=== PATIENT | female | born 1945 | race Caucasian/White ===

== ENCOUNTER 2019-06-01 13:15 | Outpatient (CLI) | payer MEDICARE, SELFPAY ==
--- NOTE | ~2019-06-01 | XR_ITS ---
EXAMINATION: XR foot LT min 3V DATE: 06/01/2019 13:42 INDICATION: Unspecified fall, pain of the lateral foot TECHNIQUE: Dorsoplantar, lateral, and 2 oblique views of the left foot were obtained. COMPARISON: None. FINDINGS: There is no fracture, dislocation, or subluxation. The bones, soft tissues, and joint space s are normal. IMPRESSION: 1. No acute osseous abnormality. Reviewed, dictated and finalized at location A. AR RUNNER
== END 2019-06-01 13:16 | disposition home or self-care (01) ==
PROVIDERS: PCP Internal Medicine; Visit Provider Internal Medicine
DX: M79.672 Pain in left foot (principal)
CPT/HCPCS: 73630

== ENCOUNTER 2019-08-18 13:19 | Inpatient (IN) | payer MEDICARE, SELFPAY ==
[2019-08-18] VITALS (8 sets, daily range): BP systolic 108–154; BP diastolic 55–119; PULSE 57–79; RESP 3–16; TEMP 36.1–36.4; O2SAT 96–100; BMI 24.9
--- NOTE | ~2019-08-18 | CT_ITS ---
EXAMINATION: CT brain wo con DATE: 08/18/2019 13:29 INDICATION: Facial weakness. TECHNIQUE: Computed tomography (CT) of the head was performed without intravenous contrast. The mA wa s adjusted according to patient size. Iterative reconstruction technique was employed. The dose-lengt h product was 529.67 mGy-cm. 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 There is a punctate calcification at the margin of the mass. There is a small old infarct in left cerebellum. There is no acute ischemic infarct or intracranial hemorrhage. The ve ntricles are normal in size. There is mild mucosal thickening in the paranasal sinuses. The mastoid a ir cells are normal. There are likely changes of ocular lens replacement surgeries. IMPRESSION: 1. 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 The differential diagnosis includes oliveira matter heterotopia and neoplasm such as subependymoma. 2. Small old infarct in left cerebellum. 3. I discussed this case with Dr. Parry on 08/18/19 at 13:35. Reviewed, dictated and finalized at location A. IMPRESSION: 1. 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 The different ial diagnosis includes oliveira matter heterotopia and neoplasm such as subependymo ma. 2. Small old infarct in left cerebellum. 3. I discussed this case with Dr. Parry on 08/18/19 at 13:35.
--- NOTE | ~2019-08-18 | US_ITS ---
EXAMINATION: US carotid duplex BI DATE: 08/19/2019 15:33 INDICATION: CVA. TECHNIQUE: Grayscale, color Doppler, and pulsed Doppler images of the cervical carotid arteries were obtained. The degree of vessel stenosis is placed in one of the following categories: normal, <50%, 5 0-69%, >=70% but less than near-occlusion, near-occlusion, or total occlusion. Note that percent sten osis relative to normal distal artery lumen diameter is indirectly measured from velocity measurement s as described by Weston, et al. Radiology 2003; 229:340-346. Notes: Normal: Peak systolic velocity <125 centimeters/sec and no plaque <50%. Peak systolic velocity <125 ( EDV <40; ICA/CCA PSV ratio <2.0; used these factors only a tandem lesions or low cardiac output or co ntralateral disease) 50-69 %: PSV 125-230 (EDV 40-100; ratio 2-4) >= 70% but less than near occlusion: PSV greater than 230 (EDV > 100; ratio> 4.0) Near Occlusion: PSV that is variable; markedly narrowed lumen Occlusion: Absent flow on color/spectral Doppler and no lumen on oliveira scale. COMPARISON: None. FINDINGS: RIGHT: The right common carotid artery (CCA) peak systolic velocity (PSV) is 102 cm/s. The right internal ca rotid artery (ICA) PSV is 122 cm/s. The right ICA end-diastolic velocity (EDV) is 23 cm/s. The right ICA/CCA PSV ratio is 1.2. The external carotid artery (ECA) PSV is 160 cm/s. There is antegrade flow in the right vertebral artery. LEFT: The left CCA PSV is 116 cm/s. The left ICA PSV is 146 cm/s. The left ICA EDV is 14 cm/s. The left ICA /CCA PSV ratio is 1.3. The ECA PSV is 128 cm/s. There is antegrade flow in the left vertebral artery . IMPRESSION: 1. Less than 50% stenosis in the right internal carotid artery by sonographic criteria. 2. 50-69% stenosis in the left internal carotid artery by sonographic criteria. Reviewed, dictated and finalized at location A. IMPRESSION: 1. Less than 50% stenosis in the right internal carotid artery by sonographic c riteria. 2. 50-69% stenosis in the left internal carotid artery by sonographic criteria.
--- NOTE | ~2019-08-18 | MR_ITS ---
EXAMINATION: MR brain/brain stem wo/w con DATE: 08/19/2019 15:16 INDICATION: Left facial numbness TECHNIQUE: Magnetic resonance imaging (MRI) of the brain and brainstem was performed prior to than wing the administration of 14 cc of MultiHance intravenous contrast. Sequences included sagittal a nd axial T1-weighted SE, axial diffusion-weighted FS EPI ASSET, axial T2*-weighted GRE, axial T2-weig hted FLAIR Propeller, and axial T2-weighted Propeller. Postcontrast axial and coronal T1-weighted SE was obtained. Apparent diffusion coefficient (ADC) maps were created. COMPARISON: 09/21/2018 FINDINGS: There are no areas of restricted diffusion to suggest acute infarction. An old infarct is a gain noted in the left cerebellum. There is no acute hemorrhage seen on the T2*, a hemosiderin sensit nirmal sequence. The ventricles are normal in size. There is a stable 11 mm ependymal mass in the left l ateral ventricle which is again seen to follow oliveira matter signal intensity on all sequences. There a re no extra-axial collections. Flow voids are seen in the cerebral arteries on the T2-weighted seque nces consistent with their expected patency. Visualized orbits and soft tissues are unremarkable. Th ere are no areas of abnormal enhancement on the post contrast images. IMPRESSION: 1. No acute intracranial process. 2. 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 3. 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 Reviewed, dictated and finalized at location A. IMPRESSION: 1. No acute intracranial process. 2. 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 3. 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
--- NOTE | ~2019-08-18 | XR_ITS ---
EXAMINATION: XR chest 1V INDICATION: Chest pressure TECHNIQUE: AP view of the chest is obtained. COMPARISON: 08/24/2018 FINDINGS: The lungs are free of acute opacities. There is no pleural effusion or pneumothorax. A prom inent epicardial fat pad is noted at the left costophrenic angle. Thoracolumbar levocurvature is note d. The cardiomediastinal silhouette is stable. A surgical clip is noted in the left upper quadrant. IMPRESSION: 1. No acute cardiopulmonary abnormality. Reviewed, dictated and finalized at location A.
--- NOTE | 2019-08-18 13:21 | ECG_ITS ---
Measurements Intervals [place] Rate: 60 P: 124 VT: 149 QRS: 181 QRSD: 97 T: 149 QT: 404 QTc: 404 Interpretive Statements SINUS RHYTHM LIMB LEAD REVERSAL BASELINE ARTIFACT- I, II, III, AVL, AVF, V3 ATYPICAL ECG Electronically Signed On 08-18-2019 13:56:54 CDT by Danilo Jackson D.O.
[2019-08-18 14:15] LABS: Glucose Point of Care 132 (65-105)
[2019-08-18 14:26] LABS: Basophils Absolute Auto 0.1 K/mm3 (0.0-0.1); Basophils Percent Auto 0.7 % (0.2-1.2); Eosinophils Absolute Auto 0.3 K/mm3 (0-0.3); Eosinophils Percent Auto 3.8 % (0-4.4); Hematocrit 46.6 % (37.0-47.0); Immature Granulocyte Absolute 0.02 K/mm3 (0.00-0.031); Immature Granulocyte Percent A 0.3 % (0-0.5); Lymphocytes Absolute Auto 2.33 K/mm3 (0.9-3.2); Lymphocytes Percent Auto 34.4 % (18.3-44.2); Mean Corpuscular HGB Conc 32.2 g/dl (32-36); Mean Corpuscular Hemoglobin 28.6 pg (26-34); Mean Corpuscular Volume 88.9 fl (80-100); Mean Platelet Volume 10.4 fl (7.4-10.4); Monocytes Absolute Auto 0.7 K/mm3 (0.1-0.6); Neutrophils Absolute Auto 3.4 K/mm3 (1.3-6.7); Neutrophils Percent Auto 50.8 % (45.5-73.1); Platelet Count Result 292 k/mm3 (150-375); Red Blood Count 5.24 M/mm3 (4.2-5.4); Red Cell Distribution Width 13.3 % (11.5-14.5); White Blood Count 6.8 K/mm3 (4.5-10.0)
[2019-08-18 14:35] LABS: INR 0.9; Prothrombin Time 11.9 Seconds (11.1-14.7)
[2019-08-18 14:36] LABS: Partial Thromboplastin Time 26.3 SECONDS (22.3-36.8)
[2019-08-18 14:40] LABS: Blood Urea Nitrogen 13 mg/dL (7-17); Calcium 9.7 mg/dL (8.4-10.2); Carbon Dioxide 31 mmol/L (22-30); Chloride 100 mmol/L (98-107); Estimated CRCL calculation 64 ml/min; Estimated Glomerular Filt Rate > 60; Glucose 131 mg/dL (65-105); Potassium 4.1 mmol/L (3.4-5.0); Sodium 139 mmol/L (137-145)
[2019-08-18 14:52] LABS: Troponin I < 0.012 ng/mL (0.000-0.034)
--- NOTE | 2019-08-18 15:41 | ED.NEUROSD ---
HPI - Neuro Symptoms/Deficit General Chief Complaint: Suspected CVA Stated Complaint: doctor thinks i am having a stroke Time Seen by Provider: 08/18/19 14:03 Source: patient and family Mode of arrival: ambulatory Limitations: no limitations History of Present Illness HPI Narrative: 74-year-old with a history of CAD, hyperlipidemia, diabetes here with complaints of left-sided facial numbness since this morning patient states that she was unable to sleep all night long slept till about 1030 this morning woke up with left-sided facial numbness she states that she was unable to get words out because of the numbness of her face. She denies any headache or motor weakness. No previous history of strokes in the past. Severity: mild Quality: numb and tingling Relieving factors: none Associated symptoms: denies other symptoms Related Data Home Medications Medication Instructions Recorded Confirmed aspirin [Aspir-Low] 81 mg PO DAILY 03/22/19 03/22/19 calcium carbonate-vitamin D3 1 tablet PO DAILY 03/22/19 03/22/19 [Calcium 600 + D(3)] calcium polycarbophil [FiberCon] 1,250 mg PO DAILY 03/22/19 03/22/19 evolocumab [Repatha Pushtronex] 420 mg SUBCUT MONTHLY 03/22/19 03/22/19 [id number] acid-lutein [Centrum 1 tablet PO DAILY 03/22/19 03/22/19 Silver] sitagliptin [Januvia] 100 mg PO DAILY 03/22/19 03/29/19 isosorbide mononitrate 60 mg 60 mg PO DAILY 04/20/19 tablet,extended release 24 hr nitroglycerin 0.4 mg PO Q5M PRN MDD 3 tablets 08/18/19 Allergies Allergy/AdvReac Type Severity Reaction Status Date / Time iohexol Allergy Intermediate Hives/REDFA Verified 06/09/19 10:31 [From CONTRAST - CT, XRAY] CE Hhknhbn-Rrl-Wan Reductase Allergy Intermediate Joint Pain Verified 06/09/19 10:31 Inhibitor neomycin Allergy Mild Itching Verified 06/09/19 10:31 penicillin G Allergy Mild RASH Verified 06/09/19 10:31 adhesive tape Allergy Unknown REDNESS Verified 06/09/19 10:31 aspirin Allergy Unknown Hives Verified 06/09/19 10:31 latex Allergy Unknown Other Verified 02/06/20 10:31 Penicillins Allergy Unknown Rash Verified 06/09/19 10:31 red dye Allergy Unknown Rash Verified 06/09/19 10:31 vancomycin Allergy Unknown CHEST Verified 06/09/19 10:31 PRESSURE, SOB,HEAD PRESSURE yellow dye Allergy Unknown Hallucinati Verified 06/09/19 10:31 ng bacitracin AdvReac Unknown Nausea and Verified 08/18/19 14:47 Vomiting polymyxin B AdvReac Unknown Nausea and Verified 08/18/19 14:47 Vomiting zolpidem AdvReac Unknown Nausea and Verified 08/18/19 14:47 Vomiting Review of Systems Review of Systems: All systems reviewed & are unremarkable except as noted in HPI and below Constitutional: Constitutional: Reports as per HPI Eyes: Eyes: Reports no additional eye complaints ENT: Reports system reviewed and no additional complaints, except as documented Cardiovascular: Cardiovascular: Reports no additional cardiovascular complaints Respiratory: Respiratory: Reports no additional respiratory complaints Genitourinary: Genitourinary: Reports no additional female genitourinary complaints Musculoskeletal: Musculoskeletal: Reports no additional musculoskeletal complaints Integumentary/Breasts: Skin/Breast: Reports system reviewed and no additional complaints, except as docu Neurologic: Reports system reviewed and no additional complaints, except as documented Psychiatric: Psychiatric: Reports no additional psychiatric complaints PMFSH Past Medical History Medical History Brain tumor Hyperlipidemia Hypertension IBS (irritable bowel syndrome) SHANE on CPAP Over weight PONV (postoperative nausea and vomiting) Social History Social History Smoking status: Never smoker Alcohol intake: never Exam Narrative: Exam Narrative: GENERAL: Well-appearing, well-nourished, and in no acute distress. HEAD: Normoc
--- NOTE | 2019-08-18 16:37 | ED.NEUROSD ---
HPI - Neuro Symptoms/Deficit General Source: patient and family Mode of arrival: ambulatory Limitations: no limitations History of Present Illness Severity: mild Quality: numb and tingling Relieving factors: none Related Data Home Medications Medication Instructions Recorded Confirmed aspirin [Aspir-Low] 81 mg PO DAILY 03/22/19 03/22/19 calcium carbonate-vitamin D3 1 tablet PO DAILY 03/22/19 03/22/19 [Calcium 600 + D(3)] calcium polycarbophil [FiberCon] 1,250 mg PO DAILY 03/22/19 03/22/19 evolocumab [Repatha Pushtronex] 420 mg SUBCUT MONTHLY 03/22/19 03/22/19 [id number] acid-lutein [Centrum 1 tablet PO DAILY 03/22/19 03/22/19 Silver] sitagliptin [Januvia] 100 mg PO DAILY 03/22/19 03/29/19 isosorbide mononitrate 60 mg 60 mg PO DAILY 04/20/19 tablet,extended release 24 hr nitroglycerin 0.4 mg PO Q5M PRN MDD 3 tablets 08/18/19 Allergies Allergy/AdvReac Type Severity Reaction Status Date / Time iohexol Allergy Intermediate Hives/REDFA Verified 06/09/19 10:31 [From CONTRAST - CT, XRAY] CE Kmopboe-Xiy-Xtf Reductase Allergy Intermediate Joint Pain Verified 06/09/19 10:31 Inhibitor neomycin Allergy Mild Itching Verified 06/09/19 10:31 penicillin G Allergy Mild RASH Verified 06/09/19 10:31 adhesive tape Allergy Unknown REDNESS Verified 06/09/19 10:31 aspirin Allergy Unknown Hives Verified 06/09/19 10:31 latex Allergy Unknown Other Verified 06/09/19 10:31 Penicillins Allergy Unknown Rash Verified 06/09/19 10:31 red dye Allergy Unknown Rash Verified 06/09/19 10:31 vancomycin Allergy Unknown CHEST Verified 06/09/19 10:31 PRESSURE, SOB,HEAD PRESSURE yellow dye Allergy Unknown Hallucinati Verified 06/09/19 10:31 ng bacitracin AdvReac Unknown Nausea and Verified 08/18/19 14:47 Vomiting polymyxin B AdvReac Unknown Nausea and Verified 08/18/19 14:47 Vomiting zolpidem AdvReac Unknown Nausea and Verified 08/18/19 14:47 Vomiting PMFSH Past Medical History Medical History Brain tumor Hyperlipidemia Hypertension IBS (irritable bowel syndrome) SHANE on CPAP Over weight PONV (postoperative nausea and vomiting) Social History Social History Smoking status: Never smoker Alcohol intake: never Course Vital Signs Vital signs: Vital Signs Temperature 97.6 F 08/18/19 13:39 Pulse Rate 79 08/18/19 13:39 Respiratory Rate 14 08/18/19 13:39 Blood Pressure 108/88 08/18/19 13:39 Temperature 97.6 F 08/18/19 13:39 Pulse Rate 57 L 08/18/19 15:01 Respiratory Rate 3 L 08/18/19 15:01 Blood Pressure 130/86 08/18/19 15:01 Pulse Oximetry 97 08/18/19 15:01 MDM - Neuro Symptoms/Deficit Lab Data Result diagrams: 08/18/19 13:52 08/18/19 13:52 Labs: Lab Results 08/18/19 08/18/19 08/18/19 Range/Units 13:50 13:52 13:52 WBC 6.8 (4.5-10.0) K/mm3 RBC 5.24 (4.2-5.4) M/mm3 Hgb 15.0 (12.0-15.0) g/dL Hct 46.6 (37.0-47.0) % MCV 88.9 (80-100) fl MCH 28.6 (26-34) pg MCHC 32.2 (32-36) g/dl RDW 13.3 (11.5-14.5) % Plt Count 292 (150-375) k/mm3 MPV 10.4 (7.4-10.4) fl Immature Gran % (Auto) 0.3 (0-0.5) % Neut % (Auto) 50.8 (45.5-73.1) % Lymph % (Auto) 34.4 (18.3-44.2) % Ramsey % (Auto) 10.0 H (2.6-8.5) % Eos % (Auto) 3.8 (0-4.4) % Baso % (Auto) 0.7 (0.2-1.2) % Lymph # (Auto) 2.33 (0.9-3.2) K/mm3 Ramsey # (Auto) 0.7 H (0.1-0.6) K/mm3 Eos # (Auto) 0.3 (0-0.3) K/mm3 Baso # (Auto) 0.1 (0.0-0.1) K/mm3 Abs Immat Gran (auto) 0.02 (0.00-0.031) K/mm3 Absolute Neuts (auto) 3.4 (1.3-6.7) K/mm3 Absolute Nucleated RBC 0.0 (0.0-0.012) K/mm3 Nucleated RBC % 0.0 (0.0-0.2) % PT 11.9 (11.1-14.7) Seconds INR 0.9 APTT 26.3 (22.3-36.8) SECONDS Sodium (137-145) mmol/L Potassium (3.4-5.0) mmol/L Chloride (98
--- NOTE | 2019-08-18 17:15 | ADMGEN ---
This patient, Klaudia Cedeno, was admitted to 2 Medical Room 251-. Patient/family oriented to hospital policies and general routines including ID bracelet, bed and alarms, visiting hours, pain management, procedures, bathroom and other care routines, personal items, smoking policy, room service/diet, and visiting hours. Valuables list has been completed. Information on how to activate the Rapid Response Team has been discussed. Patient/Family are encouraged to report perceived risks to care and to ask questions if they do not understand what they are told or what they should do.
[2019-08-18 18:19] LABS: Glucose Point of Care 181 (65-105)
[2019-08-18 21:13] LABS: Glucose Point of Care 134 (65-105)
--- NOTE | 2019-08-18 22:00 | PM.IMHP ---
H&P: HPI History of Present Illness Chief complaint: Left facial numbness. <Kathy Palafox PA-C - Last Filed: 08/19/19 00:19> Narrative: Klaudia Cedeno is a 74-year-old female with coronary artery disease, hypertension, hyperlipidemia, type 2 diabetes mellitus, hypothyroidism, and obstructive sleep apnea who presented to the emergency department earlier today for evaluation of left-sided facial numbness. She did not sleep well last evening, which is not unusual for her, and she estimates that she fell asleep at about 04:00. She woke up at approximately 10:30 and at that time noted that the left side of her face, more so in the hinduism region, seemed ?sunken in? as well as sensation changes throughout the left side of her face. ED physician documents that the patient said she was having difficulties getting words out, but she denies this to me. She continues to have minor decrease in sensation, but it seems to be improving. She has no other symptoms and specifically denies auditory and visual changes, vertigo, focal weakness, palpitations, dysarthria, and dysphagia. Of note, the patient lists an aspirin allergy, but states she went through desensitization and is able to tolerate a baby aspirin daily. <Kathy Palafox PA-C - Last Filed: 08/19/19 00:19> Review of Systems Review of Systems: Narrative: Twelve systems were reviewed with pertinent positives and negatives as per HPI. No fever, chills, or sweats. No recent cold or flu symptoms. Her diabetes is well controlled, with hemoglobin A1c of 6.9% April 2019. Her glucose today was around 180, which is high for her. She denies blurry vision, polydipsia, and polyuria. No chest pain or palpitations. No shortness of breath. No nausea, vomiting, or diarrhea. No dysuria. Reports memory loss that has developed over the last couple of years. Except as documented, all other systems were reviewed and are negative. <Kathy Palafox PA-C - Last Filed: 08/19/19 00:19> COUNTS INCLUDE 234 BEDS AT THE [facility] Family History Family History: Family History Mother Family history of diabetes mellitus in first degree relative Family history of coronary artery disease Family history of malignant neoplasm of thyroid Family history of kidney disease Family history of heart disease in male family member before age 55 Other Diabetes mellitus Family history of arthritis Hypertension <Kathy Palafox PA-C - Last Filed: 08/19/19 00:19> Social History Social History: Social History Social History: Surrogate decision maker: Santy Cedeno, spouse. Code status: Full code. Smoking status: Never smoker Second hand tobacco smoke exposure: Yes (SPOUSE IN THE PAST BUT HE DIDN'T SMOKE IN HOUSE) Alcohol intake: never Substance use: never Additional living arrangements comments: Lives with spouse, Santy, in [place]. 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 Spiritual care concerns: No ([facility]) Agree to blood products: Yes <Kathy Palafox PA-C - Last Filed: 08/19/19 00:19> Meds Home Medications and Allergies Home medications: Home Medications Medication Instructions Recorded Confirmed Type Centrum Silver 1 tablet PO DAILY 03/22/19 08/18/19 History Repatha Pushtronex 420 mg SUBCUT MONTHLY 03/22/19 08/18/19 History calcium carbonate-vitamin D3 1 tablet PO DAILY 03/22/19 08/18/19 History [Calcium 600 + D(3)] calcium polycarbophil [FiberCon] 1,250 mg PO DAILY 03/22/19 08/18/19 History levothyroxine 88 mcg tablet 88 mcg PO DAILY #90 tablet 04/29/19 08/18/19 Rx losartan 100 1 tablet PO DAILY #90 tablet 05/09/19 08/18/19 Rx mg-hydrochlorothiazide 12.5 mg tablet clopidogrel 75 mg tablet 75 mg PO DAILY #90 tablet 05/17/19 08/18/19 Rx Januvia 50 mg PO DAILY 08/18/19 08/18/19
[2019-08-19] VITALS (9 sets, daily range): BP systolic 118–143; BP diastolic 50–55; PULSE 60–94; RESP 16; TEMP 36.2–36.3; O2SAT 95–96
--- NOTE | 2019-08-19 00:17 | ECHO_ITS ---
Patient Info Name: Klaudia Cedeno Age: 74 years : 1945 Gender: Female Ht: 66 in Wt: 154 lbs BSA: 1.81 m2 HR: 86 bpm BP: 118 / 50 mmHg Heart Rhythm: Sinus Rhythm Technical Quality: Good Exam Date: 08/19/2019 10:36 AM Exam Location: [facility] Patient Status: Inpatient Admit Date: 08/18/2019 Staff Ordering Physician: Kathy Palafox PA-C Dean Of Girls: Aman Aguilera RDCS Attending Provider: Alize Youssef PA-C Referring Physician: Javy GUIDRY; Exam Type: CA echo doppler color flow Study Info Indications 435.9 - TIA Complete two-dimensional, color flow and Doppler transthoracic echocardiogram is performed. History/Risk Factors TIA; CAD w/ stent, HTN, DM2, brain tumor. Summary 1. Left ventricular chamber dimension is normal. 2. Left ventricular systolic function is normal, estimated at 65-70%. 3. There is mild concentric increased left ventricular wall thickness. 4. There is mild aortic valve sclerosis. 5. The annulus is mildly calcified. 6. Normal sinus rhythm. Left Ventricle Left ventricular chamber dimension is normal. Left ventricular systolic function is normal, estimated at 65-70%. There is mild concentric increased left ventricular wall thickness. The left ventricular diastolic function is grade I diastolic dysfunction. Right Ventricle Right ventricular chamber dimension is normal. Left Atria Left atrial chamber dimension is normal. Right Atria Right atrial chamber dimension is normal. Aortic Valve The aortic valve is trileaflet. There is mild aortic valve sclerosis. There is no aortic valve stenosis. Pulmonic Valve The pulmonic valve is not well visualized. Mitral Valve The mitral valve has normal leaflets. The annulus is mildly calcified. Tricuspid Valve The tricuspid valve leaflets are normal. Pericardium/Pleural The pericardium appears normal. Aorta The aortic root size at the sinus of Valsalva is normal. Left Ventricular Outflow Tract Name Value Normal LVOT 2D LVOT Diameter 1.7 cm LVOT Doppler LVOT Peak Gradient 5 mmHg LVOT Mean Gradient 2 mmHg LVOT VTI 21 cm LVOT VTI/AV VTI Ratio 0.7 LVOT Stroke Volume 49 ml LVOT CO 4.3 l/min LVOT CI 2.4 l/min/m2 Mitral Valve Name Value Normal MV Doppler MV Decel Hamblen 386 cm/s2 MV PHT 45 ms MV Area (PHT) 4.9 cm2 4.0-5.0 MV Diastolic Function MV E Peak Velocity 60 cm/s MV A Peak Velocity 61 cm/s
[2019-08-19] MEDS: predniSONE 10 MG TABLET 50 MG PO ×3 (00:33→11:09)
[2019-08-19 04:51] LABS: Basophils Percent Auto 0.2 % (0.2-1.2); Eosinophils Percent Auto 0.4 % (0-4.4); Hematocrit 43.9 % (37.0-47.0); Hemoglobin 14.4 g/dL (12.0-15.0); Immature Granulocyte Absolute 0.04 K/mm3 (0.00-0.031); Immature Granulocyte Percent A 0.4 % (0-0.5); Lymphocytes Percent Auto 12.4 % (18.3-44.2); Mean Corpuscular HGB Conc 32.8 g/dl (32-36); Mean Corpuscular Hemoglobin 28.7 pg (26-34); Mean Corpuscular Volume 87.6 fl (80-100); Mean Platelet Volume 9.9 fl (7.4-10.4); Monocytes Absolute Auto 0.1 K/mm3 (0.1-0.6); Monocytes Percent Auto 1.4 % (2.6-8.5); Neutrophils Absolute Auto 8.3 K/mm3 (1.3-6.7); Neutrophils Percent Auto 85.2 % (45.5-73.1); Platelet Count Result 267 k/mm3 (150-375); Red Blood Count 5.01 M/mm3 (4.2-5.4); Red Cell Distribution Width 13.2 % (11.5-14.5); White Blood Count 9.7 K/mm3 (4.5-10.0)
[2019-08-19 05:09] LABS: Alanine Aminotransferase 20 U/L (4-35); Albumin Level 4.2 g/dL (3.5-5.1); Alkaline Phosphatase 54 U/L (38-126); Aspartate Amino Transferase 30 U/L (14-36); Bilirubin,Total 0.3 mg/dL (0.2-1.3); Blood Urea Nitrogen 16 mg/dL (7-17); Calcium 9.1 mg/dL (8.4-10.2); Carbon Dioxide 26 mmol/L (22-30); Chloride 103 mmol/L (98-107); Estimated CRCL calculation 56 ml/min; Estimated Glomerular Filt Rate > 60; Glucose 167 mg/dL (65-105); Potassium 3.8 mmol/L (3.4-5.0); Sodium 137 mmol/L (137-145)
[2019-08-19 06:09] LABS: Thyroid Stimulating Hormone Reflex 0.318 uIU/mL (0.465-4.68)
[2019-08-19] MEDS: LEVOTHYROXINE SODIUM 88 MCG TABLET PO (06:16)
[2019-08-19 06:55] LABS: Free T4 Free Thyroxine Reflex 1.61 ng/dL (0.78-2.19)
[2019-08-19 07:55] LABS: Glucose Point of Care 186 (65-105)
[2019-08-19] MEDS: ASPIRIN 81 MG ENTERIC TABLET PO (09:13)
[2019-08-19] MEDS: calcium polycarbophiL 625 MG TABLET 1250 MG PO (09:14)
[2019-08-19] MEDS: MULTIVITAMINS /C LUTEIN (CENTRUM SILVER) TABLET *BKC 1 TAB PO (09:15)
[2019-08-19] MEDS: CLOPIDOGREL BISULFATE 75 MG TABLET PO (09:16)
[2019-08-19 10:26] LABS: Total Triiodothyronine (T3) 1.33 NG/ML (0.97-1.69)
[2019-08-19 11:32] LABS: Glucose Point of Care 213 (65-105)
[2019-08-19] MEDS: INSULIN ASPART (*BKC) 100 UNITS/ML SUB-Q (11:33)
--- NOTE | 2019-08-19 11:55 | P.PNIM_ITS ---
Progress Note: A&P Assessment and Plan (1) Left facial numbness: Code(s): R20.0 - Anesthesia of skin <Alize Harpernahomy MAKAYLA-C - Last Filed: 08/19/19 12:18> Status: Acute <Alize Youssef PA-C - Last Filed: 08/19/19 12:18> Assessment and Plan: Head CT on 08/18/19 with no acute findings. Left facial sensations have resolved. * Brain MRI pending. She is being premedicated due to contrast allergy. She has had several MRIs previously with no adverse outcomes. * Carotid Doppler ultrasounds and echocardiogram completed and radiology report pending. * Perform neurologic checks q.4 hours. * Continue aspirin and Plavix. * Patient notes an intolerance to statins. <Alize Harpernahomy MAKAYLA-C - Last Filed: 08/19/19 12:18> (2) Hypertension: Code(s): I10 - Essential (primary) hypertension <Alize WhittingtonRicky Meredithnahomy MAKAYLA-C - Last Filed: 08/19/19 12:18> Status: Acute <Alize Youssef PA-C - Last Filed: 08/19/19 12:18> Assessment and Plan: Blood pressures evaluated today and stable at 118/50. * Hold losartan and HCTZ this morning given lower reading. Will allow mild, permissive hypertension over the next 24 to 48 hours. * Continue to monitor. <Alize WhittingtonRicky Meredithnahomy MAKAYLA-C - Last Filed: 08/19/19 12:18> (3) Hyperlipidemia: Code(s): E78.5 - Hyperlipidemia, unspecified <Alize Harpernahomy PA-C - Last Filed: 08/19/19 12:18> Status: Acute <Alize Harpernahomy PA-C - Last Filed: 08/19/19 12:18> Assessment and Plan: Stable. * Patient reports an intolerance to statins. * On monthly Repatha injections. <Alize WhittingtonRicky Meredithnahomy MAKAYLA-C - Last Filed: 08/19/19 12:18> (4) Type 2 diabetes mellitus without complication: Code(s): E11.9 - Type 2 diabetes mellitus without complications <Alize WhittingtonRicky Youssef PA-C - Last Filed: 08/19/19 12:18> Status: Acute <Alize Youssef PA-C - Last Filed: 08/19/19 12:18> Assessment and Plan: Hemoglobin A1c was 6.9% in April 2019. Blood sugar evaluated today and stable at 167. * Continue sitagliptin. * Initiate sliding scale insulin, Accu-Cheks, and hypoglycemic protocol. 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 Differential diagnosis includes oliveira matter heterotopia and neoplasm such as subependymoma. She has been evaluated for this by neurosurgeon at [facility], most recently in February 2019 and was informed no further follow up would be required for 2 years. <Alize Youssef PA-C - Last Filed: 08/19/19 12:18> Subjective Date/time seen: 08/19/19 11:55 <Alize Youssef PA-C - Last Filed: 08/19/19 12:18> Interval history: Date/time of service: 08/19/19 at 1130 MsRicky Cedeno is seen today and reports she is feeling well. She describes an indentation over the left temporal region. She noticed this yesterday and then began to notice a sensation over the left side of the face down to the jaw which she described as being rubbed by a cotton ball. She continues to noticed the sunken area but reports the strange sensation on the left side has resolved. She reports that when she is lying down she does not feel any symptoms at all. She
--- NOTE | 2019-08-19 11:55 | PM.IMPN ---
Progress Note: A&P Assessment and Plan (1) Left facial numbness: Code(s): R20.0 - Anesthesia of skin <Alize WhittingtonMAKAYLA Moreno-C - Last Filed: 08/19/19 12:18> Status: Acute <Alize Harpernahomy PA-C - Last Filed: 08/19/19 12:18> Assessment and Plan: Head CT on 08/18/19 with no acute findings. Left facial sensations have resolved. Brain MRI pending. She is being premedicated due to contrast allergy. She has had several MRIs previously with no adverse outcomes. Carotid Doppler ultrasounds and echocardiogram completed and radiology report pending. Perform neurologic checks q.4 hours. Continue aspirin and Plavix. Patient notes an intolerance to statins. <Alize WhittingtonRicky Youssef PA-C - Last Filed: 08/19/19 12:18> (2) Hypertension: Code(s): I10 - Essential (primary) hypertension <Alzie Youssef PA-C - Last Filed: 08/19/19 12:18> Status: Acute <Alize WhittingtonRicky Meredithnahomy PA-C - Last Filed: 08/19/19 12:18> Assessment and Plan: Blood pressures evaluated today and stable at 118/50. Hold losartan and HCTZ this morning given lower reading. Will allow mild, permissive hypertension over the next 24 to 48 hours. Continue to monitor. <Alize JRicky Youssef PA-C - Last Filed: 08/19/19 12:18> (3) Hyperlipidemia: Code(s): E78.5 - Hyperlipidemia, unspecified <Alize WhittingtonRicky Youssef PA-C - Last Filed: 08/19/19 12:18> Status: Acute <Alize WhittingtonRicky Meredithnahomy PA-C - Last Filed: 08/19/19 12:18> Assessment and Plan: Stable. Patient reports an intolerance to statins. On monthly Repatha injections. <Alize JMAKAYLA Moreno-C - Last Filed: 08/19/19 12:18> (4) Type 2 diabetes mellitus without complication: Code(s): E11.9 - Type 2 diabetes mellitus without complications <Alize Youssef PA-C - Last Filed: 08/19/19 12:18> Status: Acute <Alize JRicky Stimac, PA-C - Last Filed: 08/19/19 12:18> Assessment and Plan: Hemoglobin A1c was 6.9% in April 2019. Blood sugar evaluated today and stable at 167. Continue sitagliptin. Initiate sliding scale insulin, Accu-Cheks, and hypoglycemic protocol. 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 Differential diagnosis includes oliveira matter heterotopia and neoplasm such as subependymoma. She has been evaluated for this by neurosurgeon at [facility], most recently in February 2019 and was informed no further follow up would be required for 2 years. <Alize Youssef PA-C - Last Filed: 08/19/19 12:18> Subjective Date/time seen: 08/19/19 11:55 <Alize Youssef PA-C - Last Filed: 08/19/19 12:18> Interval history: Date/time of service: 08/19/19 at 1130 MsRicky Cedeno is seen today and reports she is feeling well. She describes an indentation over the left temporal region. She noticed this yesterday and then began to notice a sensation over the left side of the face down to the jaw which she described as being rubbed by a cotton ball. She continues to noticed the sunken area but reports the strange sensation on the left side has resolved. She reports that when she is lying down she does not feel any symptoms at all. She is reading a book at time of visit. She denies any visual changes. She denies speech changes but notes that sometimes she forgets words. She has had progressive changes to her memory over the past two years, stating that her math skills and spelling ability have decreased and she has noticed short term memory issues. She denies dizziness or lightheadedness, weak
--- NOTE | 2019-08-19 13:46 | ECG_ITS ---
Measurements Intervals [place] Rate: 87 P: -9 IN: 170 QRS: 59 QRSD: 97 T: -5 QT: 305 QTc: 367 Interpretive Statements SINUS RHYTHM INCOMPLETE RIGHT BUNDLE BRANCH BLOCK DELAYED PRECORDIAL R/S TRANSITION NONSPECIFIC T-WAVE ABNORMALITY- INFERIOR LEADS BASELINE WANDER- I, III BORDERLINE ECG Electronically Signed On 08-19-2019 15:08:02 CDT by Danilo Jackson D.O.
[2019-08-19 13:53] LABS: Glucose Point of Care 284 (65-105)
[2019-08-19 17:06] LABS: Glucose Point of Care 185 (65-105)
[2019-08-19] MEDS: ACETAMINOPHEN 500 MG TABLET 1000 MG PO (20:56)
[2019-08-19 21:00] LABS: Glucose Point of Care 239 (65-105)
[2019-08-20] VITALS: PULSE 69
[2019-08-20 04:00] VITALS: PULSE 69
[2019-08-20 05:15] LABS: Hematocrit 42.8 % (37.0-47.0); Hemoglobin 13.9 g/dL (12.0-15.0); Mean Corpuscular HGB Conc 32.5 g/dl (32-36); Mean Corpuscular Volume 89.2 fl (80-100); Mean Platelet Volume 10.2 fl (7.4-10.4); Platelet Count Result 293 k/mm3 (150-375); Red Cell Distribution Width 13.7 % (11.5-14.5); White Blood Count 19.4 K/mm3 (4.5-10.0)
[2019-08-20 05:29] LABS: Blood Urea Nitrogen 21 mg/dL (7-17); Calcium 9.3 mg/dL (8.4-10.2); Carbon Dioxide 27 mmol/L (22-30); Chloride 104 mmol/L (98-107); Estimated CRCL calculation 56 ml/min; Estimated Glomerular Filt Rate > 60; Glucose 133 mg/dL (65-105); Potassium 3.6 mmol/L (3.4-5.0); Sodium 138 mmol/L (137-145)
[2019-08-20 06:00] VITALS: BP 115/46; PULSE 64; RESP 18; TEMP 36.8; O2SAT 98
[2019-08-20] MEDS: LEVOTHYROXINE SODIUM 88 MCG TABLET PO (06:12)
[2019-08-20 08:00] VITALS: PULSE 58
[2019-08-20 08:02] LABS: Glucose Point of Care 112 (65-105)
[2019-08-20 08:47] LABS: Basophils Percent Auto 0.2 % (0.2-1.2); Eosinophils Percent Auto 0.1 % (0-4.4); Hematocrit 43.7 % (37.0-47.0); Hemoglobin 13.9 g/dL (12.0-15.0); Immature Granulocyte Absolute 0.11 K/mm3 (0.00-0.031); Immature Granulocyte Percent A 0.6 % (0-0.5); Lymphocytes Absolute Auto 3.26 K/mm3 (0.9-3.2); Mean Corpuscular HGB Conc 31.8 g/dl (32-36); Mean Corpuscular Hemoglobin 28.7 pg (26-34); Mean Corpuscular Volume 90.1 fl (80-100); Mean Platelet Volume 10.5 fl (7.4-10.4); Monocytes Absolute Auto 1.8 K/mm3 (0.1-0.6); Monocytes Percent Auto 9.5 % (2.6-8.5); Neutrophils Percent Auto 72.6 % (45.5-73.1); Platelet Count Result 292 k/mm3 (150-375); Red Blood Count 4.85 M/mm3 (4.2-5.4); Red Cell Distribution Width 13.8 % (11.5-14.5); White Blood Count 19.2 K/mm3 (4.5-10.0)
[2019-08-20] MEDS: ASPIRIN 81 MG ENTERIC TABLET PO (08:52)
[2019-08-20] MEDS: ISOSORBIDE MONONITRATE 30 MG TAB.ER.24H PO (08:53)
[2019-08-20] MEDS: CLOPIDOGREL BISULFATE 75 MG TABLET PO (08:53)
[2019-08-20] MEDS: calcium polycarbophiL 625 MG TABLET 1250 MG PO (08:53)
[2019-08-20] MEDS: MULTIVITAMINS /C LUTEIN (CENTRUM SILVER) TABLET *BKC 1 TAB PO (08:54)
--- NOTE | 2019-08-20 10:37 | PM.DS ---
DS: Diagnosis Admitting Diagnosis Admitting Diagnosis: Anesthesia of skin Discharge Diagnosis (1) Left facial numbness: Code(s): R20.0 - Anesthesia of skin Status: Acute (2) Hypertension: Code(s): I10 - Essential (primary) hypertension Status: Acute (3) Hyperlipidemia: Code(s): E78.5 - Hyperlipidemia, unspecified Status: Acute (4) Type 2 diabetes mellitus without complication: Code(s): E11.9 - Type 2 diabetes mellitus without complications Status: Acute (5) Brain tumor: Code(s): D49.6 - Neoplasm of unspecified behavior of brain Status: Chronic DS: Summary Hospital Course Reason for hospitalization: Facial numbness Hospital Course: Date of admission: 08/18/19 Date of discharge: 08/20/19 Klaudia Cedeno is a 74 year old female with a PMH significant for CAD, HTN, HLD, Type 2 DM, Hypothyroidism, SHANE, and previous CVA who presented to the ED on 08/18/19 with complaints of left-sided facial numbness which started in her temporal region and spread down to her left cheek and jaw area. At presentation, VSS, electrolytes wnl, glucose 131, troponin <0.012, EKG with no ST changes, and head CT with no acute findings. She was admitted to the hospitalist service on 08/18/19 for TIA/CVA workup. Neurologic checks were performed Q4H. She was continued on aspirin and plavix. She is intolerant to statins and instead gets monthly Repatha injections. TTE revealed mild aortic valve sclerosis. Carotid Doppler revealed <50% stenosis of right ICA and 50-69% stenosis of left ICA. Given allergies, she was premedicated with Prednisone prior to MRI. Brain MRI revealed no acute intracranial process and small old infarct in left cerebellum. Given allergies, she was premedicated with Prednisone prior to MRI. She developed leukocytosis following Prednisone. Additionally, CT and MRI both showed stable ependymal mass of the left lateral ventricle. Patient has been evaluated for this mass and sees a neurosurgeon at [facility]. She has been told she does not need to be seen for 2 years. She complained of some mild dizziness upon standing on one occasion but was not orthostatic. She did have some blood pressure fluctuations but overall, remained relatively stable. I educated her on monitoring her blood pressure from home with proper technique, and she will record her blood pressures to take to her PCP. Blood sugar remained stable. Given improvement of her left facial sensation and lack of additional symptoms, she was anxious to return home and felt to be stable for discharge with continuation of aspirin and plavix. We discussed warning signs and symptoms for which she should seek immediate care. She was encouraged to follow up with her PCP in 1 week. She is also a patient of Dr. Kowalski and has an upcoming appointment scheduled with him. She was discharged home on the afternoon of 08/20/19 in hemodynamically stable condition. Status at Discharge Functional status at discharge: independent ambulation Overall status at discharge: patient is progressing back to baseline Time Spent with Patient Time attestation: Total time spent providing and/or coordinating discharge services: 41 minutes Exam Narrative: Exam Narrative: Ms. Cedeno is examined alone today. She is a well nourished 74 year old female who is lying supine in bed. She appears comfortable and is in NARD. BP 115/46. HR 64. RR 18. T 98.3F Neuro: awake, alert and oriented x3, speech clear, face symmetric, tongue midline, equal sensation on bilateral face, strength 5/5 HEENMT: normocephalic, atraumatic, PERRL, EOMI, sclerae anicteric, mild periorbital edema, moist oral mucosa, normal oropharynx Neck: supple, no lymphadenopathy Respiratory: clear to auscultation bilaterally, normal respiratory effort without accessory muscle use, 98% on room air Cardio: regular rate, regular rhythm, no murmur noted Abdomen: normal to inspection, nondistended, normoactive bowel nahomy
[2019-08-20 11:46] LABS: Glucose Point of Care 98 (65-105)
[2019-08-20 12:00] VITALS: PULSE 63
== END 2019-08-20 13:35 | disposition home or self-care (01) | DRG 93 ==
LOC: ANHED 16:00 → ANH2MED 16:18
PROVIDERS: Physician Assistant; Admitting Provider Family Medicine; Emergency Provider Family Medicine; PCP Internal Medicine; Visit Provider Internal Medicine
DX: R20.0 Anesthesia of skin (principal); I10 Essential (primary) hypertension; E78.5 Hyperlipidemia, unspecified; E11.9 Type 2 diabetes mellitus without complications; I25.10 Atherosclerotic heart disease of native coronary artery without angina pectoris; G47.33 Obstructive sleep apnea (adult) (pediatric); D49.6 Neoplasm of unspecified behavior of brain
CPT/HCPCS: 36415; 70450; 70553; 71045; 80048; 80053; 82607; 82948; 84439; 84443; 84480; 84484; 85025; 85027; 85610; 85730; 93005; 93306; 93880; 99285; A9270; A9577; J1815; J7512

== ENCOUNTER 2019-08-25 09:43 | Outpatient (CLI) | payer MEDICARE, SELFPAY ==
[2019-08-25 10:21] LABS: Hemoglobin A1C 6.6 % (<5.7)
[2019-08-25 10:22] LABS: Cholesterol 138 mg/dL (0-200); HDL Direct 58 mg/dL; Triglycerides 156 mg/dL (<150)
[2019-08-25 10:34] LABS: LDL Cholesterol Direct 55 mg/dL
[2019-08-25 10:40] LABS: Creatinine Urine 77.4 mg/dL
[2019-08-25 10:48] LABS: MALB Creatinine Ratio < 7.8 mg/g (0-30); Microalbumin Urine Random < 6.0 mg/L (0-16.7)
== END 2019-08-25 09:44 | disposition home or self-care (01) ==
PROVIDERS: PCP Internal Medicine; Visit Provider Internal Medicine
DX: E11.9 Type 2 diabetes mellitus without complications (principal); E78.5 Hyperlipidemia, unspecified; E03.9 Hypothyroidism, unspecified
CPT/HCPCS: 36415; 80061; 82043; 83036; 84443

== ENCOUNTER 2020-01-06 12:35 | Outpatient (CLI) | payer MEDICARE, SELFPAY ==
--- NOTE | ~2020-01-06 | XR_ITS ---
EXAMINATION: XR_CERV2-3V_CR DATE: 01/06/2020 12:59 INDICATION: Cervical radiculopathy. TECHNIQUE: 3 views of cervical spine were obtained. COMPARISON: Neck CTA 09/08/2018 FINDINGS: There is 2 mm retrolisthesis of C3 on C4. Vertebral body heights are normal. There is sever patrice decreased disc height at C3-C4 and mildly decreased disc height at C5-C6. There is multilevel unc overtebral joint osteoarthritis, severe on the right at C3-C4. There is multilevel severe facet joint osteoarthritis. There is ankylosis of the facet joint on the right at C4-C5 with severe hypertrophy. There is mild central canal stenosis at C3-C4. No prevertebral soft tissue swelling. IMPRESSION: 1. Severe cervical spondylosis. Reviewed, dictated and finalized at location A.
== END 2020-01-06 12:36 | disposition home or self-care (01) ==
LOC: ANHIMG 12:39
PROVIDERS: PCP Internal Medicine; Visit Provider Internal Medicine
DX: M47.22 Other spondylosis with radiculopathy, cervical region (principal)
CPT/HCPCS: 72040

== ENCOUNTER → 2020-01-27 12:27 | Outpatient (CLI) | payer MEDICARE, SELFPAY ==
--- NOTE | ~2020-01-27 | MM_ITS ---
EXAMINATION: MM screening maria l BI w shakir HISTORY: Screening mammogram TECHNIQUE: Craniocaudal and mediolateral oblique 3-D tomosynthesis images were obtained and synthetic 2-D images were generated. CAD analysis was submitted and interpreted. COMPARISON: 07/14/2018, 05/21/2017 bilateral digital screening mammogram examinations To bilateral diagnostic digital mammogram To bilateral digital screening mammogram BREAST PARENCHYMAL COMPOSITION: The breasts are almost entirely fatty. FINDINGS: There is no evidence of suspicious mass, calcification, or architectural distortion to sugg est malignancy in either breast. There has been no suspicious interval change. IMPRESSION: 1. No mammographic evidence of malignancy. 2. Recommend routine screening mammography in one year. BI-RADS Category 1: Negative Reviewed, dictated and finalized at location A.
== END ==
PROVIDERS: PCP Internal Medicine; Visit Provider Internal Medicine
DX: Z12.31 Encounter for screening mammogram for malignant neoplasm of breast (principal)
CPT/HCPCS: 77063; 77067

== ENCOUNTER 2020-06-05 12:25 | Outpatient (CLI) | payer MEDICARE, SELFPAY ==
--- NOTE | ~2020-06-05 | XR_ITS ---
XR abdomen/kub 1V 06/05/2020 12:42 Indication: Right kidney stone Procedure: KUB Comparison: No prior studies for comparison. Findings: Bowel gas pattern is nonobstructive. There are surgical changes consistent with left nephre ctomy. Moderate colonic fecal loading. Mild levoscoliosis of the lumbar spine. There are multiple pel esther phleboliths. No right renal stones identified. Impression: 1: No acute abdominal abnormality. Reviewed, dictated and finalized at location A. D ENGINEERING TECHNICIAN Impression: 1: No acute abdominal abnormality.
== END 2020-06-05 12:26 | disposition home or self-care (01) ==
LOC: ANHIMG 12:30
PROVIDERS: PCP Internal Medicine; Visit Provider Nurse Practitioner Family
DX: N20.0 Calculus of kidney (principal)
CPT/HCPCS: 74018

== ENCOUNTER 2020-06-13 12:52 | Outpatient (CLI) | payer MEDICARE, SELFPAY ==
--- NOTE | ~2020-06-13 | XR_ITS ---
EXAMINATION: XR chest 2V 06/13/2020 13:15 INDICATION: Shortness of breath PROCEDURE: 2 view chest COMPARISON: 08/27/2012 FINDINGS: The lungs are clear. The cardiomediastinal silhouette is within normal limits. There are no pleural effusions. There is no pneumothorax suspected. IMPRESSION: 1: NO ACUTE CARDIOPULMONARY DISEASE. Reviewed, dictated and finalized at location B. EN EQUIPMENT TECHNICIAN
== END 2020-06-13 12:53 | disposition home or self-care (01) ==
LOC: ANHIMG 12:59
PROVIDERS: PCP Internal Medicine; Visit Provider Nurse Practitioner Family
DX: B94.8 Sequelae of other specified infectious and parasitic diseases (principal); R06.02 Shortness of breath
CPT/HCPCS: 71046

== ENCOUNTER → 2020-10-02 02:40 | Outpatient (CLI) | payer MEDICARE, SELFPAY ==
[2020-10-02 18:14] LABS: SARS-CoV-2 RNA PCR Negative
== END ==
PROVIDERS: PCP Internal Medicine; Visit Provider Internal Medicine Gastroenterology
DX: Z01.812 Encounter for preprocedural laboratory examination (principal); Z20.822 Contact with and (suspected) exposure to COVID-19
CPT/HCPCS: C9803; U0003; U0005

== ENCOUNTER 2020-10-05 01:24 | Day surgery (SDC) | payer MEDICARE, SELFPAY ==
[2020-09-27 10:53] VITALS: BMI 24.9
--- NOTE | 2020-10-05 07:46 | PM.HPGS ---
History of Present Illness History of Present Illness Consent: Risks, benefits, and alternatives have been discussed and questions answered. Patient agrees to proceed with procedure. Chief complaint: GERD Narrative: Klaudia Cedeno is a 75 year old female with dysphagia for solid food. 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 Differential diagnosis includes oliveira matter heterotopia and neoplasm such as subependymoma. Coronary artery disease : Stent in 2009. : Angioplasty to circumflex in April 2018. : Cardiac catheterization October 12, [address] Acosta showed mild to moderate nonobstructing coronary artery disease with persistent improvement in stenosis previously treated with balloon angioplasty of the circumflex distribution in April 2018. Hyperlipidemia Hypertension Hypothyroidism IBS (irritable bowel syndrome) Obstructive sleep apnea on CPAP Old cerebrovascular accident without late effect Small old infarct in the left cerebellum noted on brain CT 08/18/2019. Rhinitis Type 2 diabetes mellitus without complication Hemoglobin A1c was 6.9% in April 2019. Surgical History Surgical History History of bilateral cataract extraction History of carpal tunnel release History of nephrectomy, left In 1984, secondary to nephrolithiasis. History of ovarian cystectomy History of tonsillectomy History of tubal ligation Status post creation of urethral sling by suprapubic approach Family History Family History Mother Family history of diabetes mellitus in first degree relative Family history of coronary artery disease Family history of malignant neoplasm of thyroid Family history of kidney disease Family history of heart disease in male family member before age 55 Other Diabetes mellitus Family history of arthritis Hypertension Social History Social History Social History: Surrogate decision maker: Santy Cedeno, spouse. Code status: Full code. Smoking status: Never smoker Second hand tobacco smoke exposure: Yes (SPOUSE IN THE PAST BUT HE DIDN'T SMOKE IN HOUSE) Alcohol intake: never Substance use: never Living arrangements: with family Additional living arrangements comments: Lives with spouse, Santy, in [place]. 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 Spiritual care concerns: No Agree to blood products: Yes Meds Home Medications and Allergies Home Medications Medication Instructions Recorded Confirmed Type Centrum Silver 1 tablet PO DAILY 03/22/19 09/27/20 History Repatha Pushtronex 420 mg SUBCUT MONTHLY 03/22/19 09/27/20 History calcium carbonate-vitamin D3 1 tablet PO DAILY 03/22/19 09/27/20 History [Calcium 600 + D(3)] calcium polycarbophil [FiberCon] 1,250 mg PO DAILY 03/22/19 09/27/20 History aspirin [Adult Low Dose Aspirin] 81 mg PO DAILY 08/18/19 09/27/20 History isosorbide mononitrate 30 mg PO DAILY 08/18/19 09/27/20 History nitroglycerin 0.4 mg PO Q5M PRN MDD 3 tablets 08/18/19 09/27/20 History dicyclomine 10 mg capsule 10 mg PO TID PRN 05/24/20 09/27/20 History sitagliptin 100 mg tablet 100 mg PO DAILY 05/24/20 09/27/20 History clopidogrel 75 mg tablet See Rx Instructions .ROUTE 05/25/20 09/27/20 Rx .COMPLEX #90 tablet losartan 100 See Rx Instructions .ROUTE 06/26/20 09/27/20 Rx mg-hydrochlorothiazide 12.5 mg .COMPLEX #90 tablet tablet levothyroxine 88 mcg tablet See Rx Instructions .ROUTE 07/13/20 09/27/20 Rx .COMPLEX #90 tablet azelastine 137 mcg (0.1 %) nasal 1 spray INTRANASAL Q12H PRN ml 08/14/20 09/27/20 History s
[2020-10-05 08:00] VITALS: BP 146/61; PULSE 61; RESP 16; TEMP 36.4; O2SAT 99
[2020-10-05 08:07] LABS: Glucose Point of Care 113 mg/dl (65-105)
[2020-10-05] MEDS: LACTATED RINGERS 1,000 ML 150 ML IV CONT (08:09)
[2020-10-05 08:39] VITALS: BP 115/55; PULSE 60; RESP 18; O2SAT 97
[2020-10-05 08:49] VITALS: BP 112/58; PULSE 51; RESP 20; O2SAT 98
[2020-10-05 09:00] VITALS: BP 124/55; PULSE 52; RESP 16; O2SAT 99
== END 2020-10-05 09:31 | disposition home or self-care (01) ==
PROVIDERS: PCP Internal Medicine; Visit Provider Internal Medicine Gastroenterology
PROC: 0DJ08ZZ Inspection of Upper Intestinal Tract, Via Natural or Artificial Opening Endoscopic (ICD-10-PCS; CPT 43235; principal; 2020-10-05 09:00)
DX: K22.2 Esophageal obstruction (principal); K21.00 Gastro-esophageal reflux disease with esophagitis, without bleeding; I10 Essential (primary) hypertension; E78.5 Hyperlipidemia, unspecified; E11.9 Type 2 diabetes mellitus without complications; I25.10 Atherosclerotic heart disease of native coronary artery without angina pectoris; E03.9 Hypothyroidism, unspecified; K58.9 Irritable bowel syndrome, unspecified; G47.33 Obstructive sleep apnea (adult) (pediatric); Z86.73 Personal history of transient ischemic attack (TIA), and cerebral infarction without residual deficits; Z95.5 Presence of coronary angioplasty implant and graft; Z79.02 Long term (current) use of antithrombotics/antiplatelets; Z79.82 Long term (current) use of aspirin
CPT/HCPCS: 43249; 43239; 82948; 87081; 88305; C1726; J2704; J7120

== ENCOUNTER → 2020-10-19 10:42 | Outpatient (CLI) | payer MEDICARE, SELFPAY ==
--- NOTE | ~2020-10-19 | US_ITS ---
US abdomen complete EXAMINATION: US Abdomen Complete INDICATION: Generalized abdominal pain. Previous left nephrectomy. PROCEDURE: Realtime High Resolution abdomen ultrasound. COMPARISON: No prior studies for comparison FINDINGS: Gallbladder within normal limits. No gallstones, pericholecystic fluid, gallbladder wall t hickening or biliary dilatation. Common bile duct measures 5 mm. Liver echotexture within normal limits without focal mass. Pancreas within normal limits. Pancreati c tail is obscured by bowel gas. Spleen is unremarkeable. Right renal echotexture is within normal l imits without hydronephrosis, contour deforming mass or renal stone. Right kidney measures 11.5 cm. L eft kidney surgically absent. Visualized aspects of the aorta and IVC are within normal limits. Portal vein is patent. No sonograph ic Ayoub's sign indicated by the technologist. IMPRESSION: 1: Normal abdominal ultrasound. Reviewed, dictated and finalized at location A.
== END ==
PROVIDERS: PCP Internal Medicine; Visit Provider Internal Medicine Gastroenterology
DX: R10.817 Generalized abdominal tenderness (principal)
CPT/HCPCS: 76700

== ENCOUNTER 2020-10-22 08:49 | Outpatient (CLI) | payer MEDICARE, SELFPAY ==
--- NOTE | 2020-10-23 10:16 | WPDNEUROLOGY ---
Neurology EEG Report General Information Date of Study: 10/22/20 TEST eeg DIAGNOSIS forgetfulness CONDITION OF RECORDING drowsy and sleep EEG NUMBER [id number] CLINICAL HISTORY patient reported about a year ago she noted a decline in her memory. His strong family history of Alzheimer's disease. EEG DESCRIPTION Basic resting occipital frequency consists of low-voltage 11 to 13 hertz per 2nd alpha admixed with low-voltage 15 to 18 hertz per 2nd beta. Low-voltage beta activity seen diffusely during drowsiness. Bilateral symmetrical sleep activity seen during sleep. . hyperventilation not done . Photic stimulation produced poor drive. Non paroxysmal. Nonfocal. Nonlateralizing. IMPRESSION No significant abnormalities noted during drowsiness and sleep clinical correlation recommended. There is no evidence of paroxysmal activity or any focal slowing
== END 2020-10-22 08:50 | disposition home or self-care (01) ==
LOC: ANHNEURO 08:51
PROVIDERS: PCP Internal Medicine; Visit Provider Psychiatry & Neurology Neurology
DX: R41.3 Other amnesia (principal)
CPT/HCPCS: 95816

== ENCOUNTER → 2020-12-14 03:55 | Outpatient (CLI) | payer MEDICARE, SELFPAY ==
[2020-12-15 03:36] LABS: SARS-CoV-2 RNA PCR Negative
== END ==
PROVIDERS: PCP Internal Medicine; Visit Provider Internal Medicine
DX: R68.89 Other general symptoms and signs (principal); Z20.822 Contact with and (suspected) exposure to COVID-19
CPT/HCPCS: C9803; U0003; U0005

== ENCOUNTER 2021-01-02 15:25 | Outpatient (CLI) | payer MEDICARE, SELFPAY ==
[2021-01-02 16:33] LABS: Alanine Aminotransferase 23 U/L (4-35); Albumin Level 4.3 g/dL (3.5-5.1); Alkaline Phosphatase 56 U/L (38-126); Anion Gap 7 mmol/L (8-16); Aspartate Amino Transferase 35 U/L (14-36); Bilirubin,Total 0.3 mg/dL (0.2-1.3); Blood Urea Nitrogen 19 mg/dL (7-17); Calcium 9.4 mg/dL (8.4-10.2); Carbon Dioxide 29 mmol/L (22-30); Chloride 103 mmol/L (98-107); Cholesterol 130 mg/dL (0-200); Estimated Glomerular Filt Rate > 60; Glucose 143 mg/dL (65-110); HDL Direct 57 mg/dL; Potassium 3.8 mmol/L (3.4-5.0); Sodium 139 mmol/L (137-145); Triglycerides 116 mg/dL (<150)
[2021-01-02 16:44] LABS: LDL Cholesterol Direct 45 mg/dL
[2021-01-02 17:42] LABS: Folic Acid > 20.0 ng/mL (2.76->20)
[2021-01-02 18:04] LABS: Hemoglobin A1C 6.5 % (<5.7)
[2021-01-02 18:17] LABS: Creatinine Urine 153.1 mg/dL
[2021-01-02 18:18] LABS: MALB Creatinine Ratio 6.1 mg/g (0-30); Microalbumin Urine Random 9.3 mg/L (0-16.7)
[2021-01-02 18:30] LABS: Free T4 Free Thyroxine 1.43 ng/mL (0.78-2.19); Vitamin D 25 Hydroxy 59.3 ng/mL
[2021-01-05 10:23] LABS: Vitamin B6 20.7 ng/mL (2.1-21.7)
[2021-01-06 08:46] LABS: Vitamin B1 22 nmol/L (8-30)
[2021-01-10 21:33] LABS: Vitamin B2 16.9 nmol/L (6.2-39.0)
== END 2021-01-02 15:26 | disposition home or self-care (01) ==
LOC: ANHLAB 15:31
PROVIDERS: PCP Internal Medicine; Visit Provider Internal Medicine
DX: E53.9 Vitamin B deficiency, unspecified (principal); E55.9 Vitamin D deficiency, unspecified; Z79.899 Other long term (current) drug therapy; E11.9 Type 2 diabetes mellitus without complications; E78.2 Mixed hyperlipidemia; I10 Essential (primary) hypertension
CPT/HCPCS: 36415; 80053; 80061; 82043; 82306; 82607; 82746; 83036; 84207; 84252; 84425; 84439; 84443

== ENCOUNTER 2021-01-09 07:34 | Outpatient (CLI) | payer MEDICARE, SELFPAY ==
--- NOTE | ~2021-01-09 | CT_ITS ---
EXAMINATION: CT abdomen pelvis w con EXAM DATE: 01/09/2021 08:39 INDICATION: R10.9 - Unspecified abdominal pain. TECHNIQUE: Spiral CT of the abdomen and pelvis was performed following intravenous injection of 100 m L Omnipaque 350. Axial, coronal and sagittal images of the abdomen and pelvis were reviewed. The do se-length product (DLP) for this examination was 398.22 mGy-cm. The exposure was tailored according to patient size (auto mA exposure control), and iterative reconstruction (ASIR) was used as additiona l dose reduction technique. Comparison is made to prior examination from 01/21/2019. FINDINGS: The liver, spleen, adrenal glands and pancreas are unremarkable. Gallbladder is unremarkab le. No biliary obstruction. Absent left kidney, probably resected given some surgical clips. Right kidney is unremarkable. The uterus is unremarkable. The bladder is unremarkable. There is no retr operitoneal or pelvic lymphadenopathy. Moderate aortic arterial sclerosis. The appendix measures 6 mm in diameter, borderline enlarged and there is small amount of adjacent fat stranding. No obstructing appendicolith and does not appear fluid-filled, but previously seen small foci of gas inside the lumen are no longer present. Appearance indicates possibility of chronic or ea rly acute appendicitis. Appendix is located lateral to the cecum, lateral aspect of the abdomen/pelvi s, indicated on image 122 for clinical correlation. No abscess or perforation. There is mild to moderate sigmoid predominant colonic diverticulosis. There is no adjacent inflammat ory change to suggest diverticulitis. The stomach and small bowel are unremarkable. There is expecte d amount of colonic stool. No free intraperitoneal gas. The heart is normal in size. There are n o pericardial or pleural effusions. The lung bases are unremarkable. There are no osteoblastic or o steolytic lesions identified. IMPRESSION: 1. Possible early acute, or chronic appendicitis. 2. Colonic diverticulosis. I called Edison Banegas MD in the GI lab, left message with my extension for him to return call whe n he is between GI cases. Reviewed, dictated and finalized at location A. IMPRESSION: 1. Possible early acute, or chronic appendicitis. 2. Colonic diverticulosis. I called Edison Banegas MD in the GI lab, left message with my extension for him to return call when he is between GI cases.
== END 2021-01-09 07:35 | disposition home or self-care (01) ==
LOC: ANHIMG 07:39
PROVIDERS: PCP Internal Medicine; Visit Provider Psychiatry & Neurology Neurology
DX: K57.30 Diverticulosis of large intestine without perforation or abscess without bleeding (principal)
CPT/HCPCS: 74177; Q9967

== ENCOUNTER 2021-01-10 12:17 | Outpatient (CLI) | payer MEDICARE, SELFPAY ==
--- NOTE | ~2021-01-10 | XR_ITS ---
EXAMINATION: XR knee RT 2V DATE: 01/10/2021 12:45 INDICATION: Right knee pain. TECHNIQUE: 2 views of right knee were obtained. COMPARISON: None. FINDINGS: Bone alignment is normal. No fracture. There is mild osteoarthritis of lateral compartment characterized by a tiny marginal osteophyte. No joint space narrowing. No knee joint effusion. IMPRESSION: 1. Mild right knee osteoarthritis. Reviewed, dictated and finalized at location A.
--- NOTE | ~2021-01-10 | XR_ITS ---
EXAMINATION: XR ankle RT min 3V DATE: 01/10/2021 12:45 INDICATION: Right ankle pain. TECHNIQUE: 4 views of right ankle were obtained. COMPARISON: Right ankle radiographs 07/24/2010 FINDINGS: Bone alignment is normal. No fracture. Joint spaces are normal. Again seen is an enthesophy te at medial malleolus. There are enthesophytes at the posterior and plantar aspects of calcaneal tub erosity. There is ankle soft tissue swelling. IMPRESSION: 1. No fracture. Reviewed, dictated and finalized at location A. IMPRESSION: 1. No fracture.
--- NOTE | ~2021-01-10 | US_ITS ---
EXAMINATION: US venous doppler LE RT EXAM DATE: 01/10/2021 13:04 INDICATION: M79.604 - Pain in right leg. History of fall. TECHNIQUE: Multiple grayscale, color flow and Doppler images of the right lower extremity deep venous system were obtained and reviewed. There is no prior study for comparison. FINDINGS: The right common femoral, femoral and profunda veins demonstrate normal color flow, respira tory variation, augmentation and compressibility. Compressibility, color flow confirmed within the r ight popliteal, posterior tibial, peroneal, and greater saphenous veins. Scanning right calf area of lumps demonstrates 2 focal intramuscular heterogeneously hypoechoic regio ns probably hematomas, measuring 3.6 x 2.3 x 1.0 cm and 2.3 x 0.6 x 1.5 cm. If these do not resolve o n their own, recommend repeat imaging. IMPRESSION: 1. No right lower extremity deep venous thrombosis. 2. Two small intramuscular regions probably hematomas. Clinical follow-up. Reviewed, dictated and finalized at location A.
--- NOTE | ~2021-01-10 | XR_ITS ---
EXAMINATION: XR hip RT min 2V DATE: 01/10/2021 12:45 INDICATION: Right hip pain. TECHNIQUE: 2 views of right hip were obtained. COMPARISON: None. FINDINGS: Bone alignment is normal. No fracture. There is mild right hip osteoarthritis. Osteitis pub is is noted. There is severe lumbar spondylosis. IMPRESSION: 1. Mild right hip osteoarthritis. Reviewed, dictated and finalized at location A.
--- NOTE | ~2021-01-10 | XR_ITS ---
EXAMINATION: XR femur RT min 2V DATE: 01/10/2021 12:45 INDICATION: Right lower limb pain. TECHNIQUE: 2 views of right femur on 4 radiographs were obtained. COMPARISON: None. FINDINGS: Bone alignment is normal. No fracture. There is mild right hip and knee osteoarthritis. IMPRESSION: 1. Mild polyarticular osteoarthritis. Reviewed, dictated and finalized at location A.
--- NOTE | ~2021-01-10 | XR_ITS ---
EXAMINATION: XR tibia fibula RT 2V DATE: 01/10/2021 12:45 INDICATION: Right lower leg pain. TECHNIQUE: 2 views of right tibia and fibula were obtained. COMPARISON: None. FINDINGS: Bone alignment is normal. No fracture. There is mild right knee osteoarthritis. No knee wendi nt effusion. IMPRESSION: 1. Mild right knee osteoarthritis. Reviewed, dictated and finalized at location A.
== END 2021-01-10 12:18 | disposition home or self-care (01) ==
LOC: ANHIMG 12:18
PROVIDERS: PCP Internal Medicine; Visit Provider Internal Medicine
DX: M17.11 Unilateral primary osteoarthritis, right knee (principal); M16.11 Unilateral primary osteoarthritis, right hip
CPT/HCPCS: 73502; 73552; 73560; 73590; 73610; 93971

== ENCOUNTER → 2021-02-04 02:37 | Outpatient (CLI) | payer MEDICARE, SELFPAY ==
[2021-02-04 16:47] LABS: SARS-CoV-2 RNA PCR Negative
== END ==
PROVIDERS: PCP Internal Medicine; Visit Provider Internal Medicine Gastroenterology
DX: Z01.812 Encounter for preprocedural laboratory examination (principal); Z20.822 Contact with and (suspected) exposure to COVID-19
CPT/HCPCS: C9803; U0003; U0005

== ENCOUNTER 2021-02-07 02:05 | Day surgery (SDC) | payer MEDICARE, SELFPAY ==
[2021-01-29 13:40] VITALS: BMI 24.9
--- NOTE | 2021-02-06 18:39 | PM.HPGS ---
History of Present Illness History of Present Illness Consent: Risks, benefits, and alternatives have been discussed and questions answered. Patient agrees to proceed with procedure. Chief complaint: change in bowel habits, abdominal pain Narrative: Klaudia Cedeno is a 75 year old female with a change in bowel habits, feeling constipated but passing minimal stool or some mucus or slime. She often feels cramping throughout her lower abdomen and has an urge to have a bowel movement. Is rare for her to have anything like a formed stool, and she wonders where it all has gone. She recalls that she had relief in the past with dicyclomine but thinks that it quit working. recently she had an abnormal CT scan, showing possibe appendicitis, or pericecal inflammation. 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 Differential diagnosis includes oliveira matter heterotopia and neoplasm such as subependymoma. Cervicalgia Cognitive dysfunction Constipation Coronary artery disease : Stent in 2009. : Angioplasty to circumflex in April 2018. : Cardiac catheterization October 12, [address] Acosta showed mild to moderate nonobstructing coronary artery disease with persistent improvement in stenosis previously treated with balloon angioplasty of the circumflex distribution in April 2018. Dizziness Encounter to establish care Follow up History of CVA (cerebrovascular accident) Hypertension Hypothyroidism IBS (irritable bowel syndrome) Insomnia Leg pain, right Nausea Obstructive sleep apnea on CPAP Old cerebrovascular accident without late effect Small old infarct in the left cerebellum noted on brain CT 08/18/2019. On senior living drug therapy Orthostatic hypotension Rhinitis Right leg swelling Type 2 diabetes mellitus without complication Hemoglobin A1c was 6.9% in April 2019. Vaso vagal episode Surgical History Surgical History History of bilateral cataract extraction History of carpal tunnel release History of nephrectomy, left In 1984, secondary to nephrolithiasis. History of ovarian cystectomy History of tonsillectomy History of tubal ligation Status post creation of urethral sling by suprapubic approach Family History Family History Mother Family history of diabetes mellitus in first degree relative Family history of coronary artery disease Family history of malignant neoplasm of thyroid Family history of kidney disease Family history of heart disease in male family member before age 55 Other Diabetes mellitus Family history of arthritis Hypertension Social History Social History Social History: Surrogate decision maker: Santy Cedeno, spouse. Code status: Full code. Smoking status: Never smoker Second hand tobacco smoke exposure: Yes (SPOUSE IN THE PAST BUT HE DIDN'T SMOKE IN HOUSE) Alcohol intake: never Substance use: never Substance use type: does not use Living arrangements: with family Additional living arrangements comments: Lives with spouse, Santy, in [place]. 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 Spiritual care concerns: No Agree to blood products: Yes Meds Home Medications and Allergies Home Medications Medication Instructions Recorded Confirmed Type Centrum Silver 1 tablet PO
[2021-02-07 11:11] LABS: Glucose Point of Care 104 mg/dl (65-105)
[2021-02-07 11:19] VITALS: BP 129/104; PULSE 58; RESP 16; TEMP 36; O2SAT 98; BMI 24.4
--- NOTE | 2021-02-07 11:27 | WPDANESEPPF ---
Anes - Initial Pre Proc Eval Procedure: Operation Date: 02/07/21 12:30 Proposed Procedures p Esophagogastroduodenoscopy & Colonoscopy - Edison Banegas MD Date/Time: 02/07/21 11:27 Surgeon: Edison Banegas MD Pre Op Diagnosis: change in bowel habits, abdominal pain Patient Data Age: 75 Gender: F Height: 1.68 m Weight: 68.7 kg Last Vital Signs Temp 96.8 F L 02/07/21 11:19 Pulse 58 L 02/07/21 11:19 Resp 16 02/07/21 11:19 BP 129/104 H 02/07/21 11:19 Pulse Ox 98 02/07/21 11:19 Allergies Allergy/AdvReac Type Severity Reaction Status Date / Time iohexol Allergy Severe Hives/REDFA Verified 02/07/21 11:14 [From CONTRAST - CT, XRAY] CE Penicillins Allergy Severe Hives Verified 02/07/21 11:14 red dye Allergy Severe Rash Verified 02/07/21 11:14 yellow dye Allergy Severe Hallucinati Verified 02/07/21 11:14 ng Ktgtaez-KLV-DqH Reductase Allergy Intermediate Joint Pain Verified 02/07/21 11:14 Inhibitor [Dorzmjj-Syp-Ghp Reductase Inhibitor] vancomycin Allergy Intermediate CHEST Verified 02/07/21 11:14 PRESSURE, SOB,HEAD PRESSURE adhesive tape Allergy Mild REDNESS Verified 02/07/21 11:14 aspirin Allergy Mild Hives Verified 02/07/21 11:14 latex Allergy Mild Rash Verified 02/07/21 11:14 neomycin Allergy Mild Itching Verified 02/07/21 11:14 penicillin G Allergy Mild RASH Verified 02/07/21 11:14 bacitracin AdvReac Mild Nausea and Verified 02/07/21 11:14 Vomiting polymyxin B AdvReac Mild Nausea and Verified 02/07/21 11:14 Vomiting zolpidem AdvReac Mild Nausea and Verified 02/07/21 11:14 Vomiting Home Medications Medication Instructions Recorded Confirmed Type Centrum Silver 1 tablet PO DAILY 03/22/19 02/07/21 History Repatha Pushtronex 420 mg SUBCUT MONTHLY 03/22/19 02/07/21 History calcium carbonate-vitamin D3 1 tablet PO DAILY 03/22/19 02/07/21 History [Calcium 600 + D(3)] aspirin [Adult Low Dose Aspirin] 81 mg PO DAILY 04/16/20 10/07/21 History isosorbide mononitrate 30 mg PO DAILY 08/18/19 02/07/21 History nitroglycerin 0.4 mg PO Q5M PRN MDD 3 tablets 08/18/19 02/07/21 History sitagliptin 100 mg tablet 100 mg PO DAILY 05/24/20 02/07/21 History levothyroxine 88 mcg tablet See Rx Instructions .ROUTE 10/09/20 02/07/21 Rx .COMPLEX #90 tablet donepezil 5 mg tablet 5 mg PO QHS #30 tablet 11/19/20 02/07/21 Rx clopidogrel 75 mg tablet See Rx Instructions .ROUTE 12/21/20 02/07/21 Rx .COMPLEX #90 tablet blood sugar diagnostic #100 ea 12/24/20 02/07/21 Rx blood-glucose meter #1 ea 12/24/20 02/07/21 Rx lancets #200 ea 12/24/20 02/07/21 Rx prednisone 50 mg tablet 50 mg PO .COMPLEX #3 tablet 01/01/21 02/07/21 Rx losartan 100 mg tablet 100 mg PO DAILY #90 tablet 01/02/21 02/07/21 Rx azelastine 137 mcg (0.1 %) nasal See Rx Instructions .ROUTE 01/09/21 02/07/21 Rx spray aerosol .COMPLEX #30 ml Adult Probiotic 1 cap PO DAILY 01/29/21 02/07/21 History diphenhydramine HCl [Benadryl] See Rx Instructions .ROUTE 01/29/21 02/07/21 History .COMPLEX PRN trazodone 25 mg PO QHS 01/29/21 02/07/21 History calcium polycarbophil 625 mg tablet 1,250 mg PO BID 02/01/21 02/07/21 History mineral oil See Rx Instructions MISCELLANEOUS 02/01/21 02/07/21 History .COMPLEX simethicone 250 mg capsule 250 mg PO QID PRN cap 02/01/21 02/07/21 History Laboratory Tests 02/07/21 11:08 POC Capillary Glucose 104 mg/dl mg/dl (65-105) Patient hx anesthesia problems: none Family hx anesthesia problems: none Results Review: All pre-operative results and documents have been reviewed as part of the pre-operative evaluation. 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 Differential diagnosis includes oliveira matter heterotopia and neoplasm such as
[2021-02-07] MEDS: LACTATED RINGERS 1,000 ML 150 ML IV CONT (11:33)
--- NOTE | 2021-02-07 11:55 | SUR.OPER ---
EGD procedure ended at 1149. Colonoscopy procedure started at 1155.
[2021-02-07 12:11] VITALS: BP 121/53; PULSE 48; RESP 12; O2SAT 97
[2021-02-07 12:21] VITALS: BP 124/54; PULSE 48; RESP 13; O2SAT 98
[2021-02-07 12:31] VITALS: BP 125/91; PULSE 57; RESP 20; O2SAT 98
[2021-02-07 12:41] VITALS: BP 151/78; PULSE 50; RESP 20; O2SAT 98
== END 2021-02-07 13:05 | disposition home or self-care (01) ==
PROVIDERS: PCP Internal Medicine; Visit Provider Internal Medicine Gastroenterology
PROC: 0DJ08ZZ Inspection of Upper Intestinal Tract, Via Natural or Artificial Opening Endoscopic (ICD-10-PCS; CPT 43235; principal; 2021-02-07 12:30)
DX: K52.9 Noninfective gastroenteritis and colitis, unspecified (principal); K57.30 Diverticulosis of large intestine without perforation or abscess without bleeding; K21.9 Gastro-esophageal reflux disease without esophagitis; I25.10 Atherosclerotic heart disease of native coronary artery without angina pectoris; D49.6 Neoplasm of unspecified behavior of brain; I10 Essential (primary) hypertension; E03.9 Hypothyroidism, unspecified; G47.33 Obstructive sleep apnea (adult) (pediatric); E11.9 Type 2 diabetes mellitus without complications; Z86.73 Personal history of transient ischemic attack (TIA), and cerebral infarction without residual deficits; Z79.02 Long term (current) use of antithrombotics/antiplatelets; Z79.82 Long term (current) use of aspirin; Z79.84 Long term (current) use of oral hypoglycemic drugs
CPT/HCPCS: 45388; 45380; 43239; 82948; 88305; J2704; J7120

== ENCOUNTER 2021-04-15 12:02 | Outpatient (CLI) | payer MEDICARE, SELFPAY ==
[2021-04-15 12:29] LABS: Alanine Aminotransferase 20 U/L (4-35); Albumin Level 4.6 g/dL (3.5-5.1); Alkaline Phosphatase 60 U/L (38-126); Anion Gap 6 mmol/L (8-16); Aspartate Amino Transferase 32 U/L (14-36); Bilirubin,Total 0.5 mg/dL (0.2-1.3); Blood Urea Nitrogen 15 mg/dL (7-17); Calcium 9.6 mg/dL (8.4-10.2); Carbon Dioxide 31 mmol/L (22-30); Chloride 100 mmol/L (98-107); Cholesterol 153 mg/dL (0-200); Estimated Glomerular Filt Rate > 60; Glucose 118 mg/dL (65-110); HDL Direct 63 mg/dL; Potassium 4.2 mmol/L (3.4-5.0); Sodium 137 mmol/L (137-145); Triglycerides 161 mg/dL (<150)
[2021-04-15 12:33] LABS: Basophils Absolute Auto 0.1 K/mm3 (0.0-0.1); Basophils Percent Auto 0.8 % (0.2-1.2); Eosinophils Absolute Auto 0.2 K/mm3 (0-0.3); Eosinophils Percent Auto 2.9 % (0-4.4); Hematocrit 44.1 % (37.0-47.0); Hemoglobin 14.2 g/dL (12.0-15.0); Immature Granulocyte Absolute 0.04 K/mm3 (0.00-0.031); Immature Granulocyte Percent A 0.5 % (0-0.5); Lymphocytes Absolute Auto 2.16 K/mm3 (0.9-3.2); Lymphocytes Percent Auto 25.8 % (18.3-44.2); Mean Corpuscular HGB Conc 32.2 g/dl (32-36); Mean Corpuscular Hemoglobin 29.2 pg (26-34); Mean Corpuscular Volume 90.6 fl (80-100); Mean Platelet Volume 10.1 fl (7.4-10.4); Monocytes Absolute Auto 0.9 K/mm3 (0.1-0.6); Monocytes Percent Auto 10.1 % (2.6-8.5); Neutrophils Percent Auto 59.9 % (45.5-73.1); Platelet Count Result 278 k/mm3 (150-375); Red Blood Count 4.87 M/mm3 (4.2-5.4); Red Cell Distribution Width 14.3 % (11.5-14.5); White Blood Count 8.4 K/mm3 (4.5-10.0)
[2021-04-15 12:40] LABS: LDL Cholesterol Direct 63 mg/dL
[2021-04-15 12:47] LABS: Free T4 Free Thyroxine 1.53 ng/mL (0.78-2.19); Vitamin D 25 Hydroxy 64.7 ng/mL
[2021-04-15 12:50] LABS: Hemoglobin A1C 5.9 % (<5.7)
== END 2021-04-15 12:03 | disposition home or self-care (01) ==
PROVIDERS: PCP Internal Medicine; Visit Provider Internal Medicine
DX: E55.9 Vitamin D deficiency, unspecified (principal); E11.9 Type 2 diabetes mellitus without complications; E78.2 Mixed hyperlipidemia; Z79.899 Other long term (current) drug therapy; I10 Essential (primary) hypertension
CPT/HCPCS: 36415; 80053; 80061; 82306; 83036; 84439; 84443; 85025

== ENCOUNTER 2021-05-10 11:21 | Outpatient (CLI) | payer MEDICARE, SELFPAY ==
--- NOTE | ~2021-05-10 | XR_ITS ---
EXAMINATION: XR abdomen/kub 1V EXAM DATE: 05/10/2021 11:44 INDICATION: Right-sided kidney stone. Left nephrectomy. TECHNIQUE: Frontal projection of the upper abdomen, frontal projection lower abdomen/pelvis for inter pretation. Comparison is made to prior examination from 06/05/2020. FINDINGS: Scattered left-sided abdominal calcific densities and numerous pelvic calcifications, phle boliths. Lung bases unremarkable. There is no organomegaly. Expected amount of colonic stool and gas. No small bowel dilation. Mild to moderate lumbar levoscoliosis. IMPRESSION: No definite right nephrolithiasis. Reviewed, dictated and finalized at location A. SCIENTIST
== END 2021-05-10 11:22 | disposition home or self-care (01) ==
PROVIDERS: PCP Internal Medicine; Visit Provider Urology
DX: N20.0 Calculus of kidney (principal)
CPT/HCPCS: 74018

== ENCOUNTER → 2021-05-15 15:47 | Outpatient (CLI) | payer MEDICARE, SELFPAY ==
--- NOTE | ~2021-05-15 | DEXA_ITS ---
Bone Density Report Name: ROMEO MOCK Age: 75 Sex: Female Ethnicity: White Date of : 1945 Indication: postmenopausal; screening for osteoporosis; height loss; Referring Provider: CHANO RAMIREZ Study: Bone densitometry was performed. Exam Date: May 15, 2021 Accession number: [id number] Bone Density: Region BMD T-score Z-score Classification AP Spine (L1, L2, L3) 0.971 -0.4 2.0 Normal Femoral Neck (Left) 0.693 -1.4 0.8 Osteopenia Total Hip (Left) 0.853 -0.7 1.1 Normal Femoral Neck (Right) 0.773 -0.7 1.5 Normal Total Hip (Right) 0.866 -0.6 1.2 Normal Total Hip Mean 0.860 -0.7 1.2 Normal World Health Organization criteria for BMD impression classify patients as: Normal (T-score at or above -1.0), Osteopenia (T-score between -1.0 and -2.5), or Osteoporosis (T-score at or below -2.5). 10-year Fracture Risk(1): Major Osteoporotic Fracture 12% Hip Fracture 2.4% Reported Risk Factors: [place] (), Neck BMD=0.693, BMI=24.5 (1) FRAX(R) Version 3.08. Fracture probability calculated for an untreated patient. Fracture probability may be lower if the patient has received treatment. Previous Exams: Region Exam Age BMD T-score BMD Change BMD Change Date g/cm2 vs Baseline vs Previous AP Spine(L1, L2, L3) 05/15/2021 75 0.971 -0.4 0.004 -0.022 07/14/2018 72 0.993 -0.2 0.025* 0.034* 05/31/2013 67 0.958 -0.5 -0.009 -0.009 08/19/2010 65 0.968 -0.5 Total Hip(Left) 05/15/2021 75 0.853 -0.7 0.005 -0.003 07/14/2018 72 0.857 -0.7 0.008 -0.060* 05/31/2013 67 0.916 -0.2 0.068* 0.068* 08/19/2010 65 0.848 -0.8 Total Hip(Right) 05/15/2021 75 0.866 -0.6 -0.004 -0.003 07/14/2018 72 0.869 -0.6 -0.001 -0.058* 05/31/2013 67 0.927 -0.1 0.057* 0.057* 08/19/2010 65 0.870 -0.6 *Denotes significance at 95% confidence level, LSC for AP Spine = 0.022 g/cm2, LSC for Total Hip = 0.027 g/cm2 Clinical Information Provided by Patient: Has used the following medications: Calcium, MTV Patient maximum height was 66.0 Menopause Age: 47 Onset of menses at age 13 Number of children 3 Impression: The patient has low bone mass, based on the Left Femoral Neck T-score. The patient has an estimated ten-year risk of hip fracture of 2.4% and
--- NOTE | ~2021-05-15 | MM_ITS ---
EXAMINATION: MM screening maria l BI w shakir HISTORY: Screening TECHNIQUE: Craniocaudal and mediolateral oblique 3-D tomosynthesis images were obtained and synthetic 2-D images were generated. CAD analysis was submitted and interpreted. COMPARISON: Comparison to multiple prior studies sequentially, with oldest reviewed study dated 05/31. BREAST PARENCHYMAL COMPOSITION: There are scattered areas of fibroglandular density. FINDINGS: There is no evidence of suspicious mass, calcification, or architectural distortion to sugg est malignancy in either breast. There has been no suspicious interval change. IMPRESSION: 1. No mammographic evidence of malignancy. 2. Recommend routine screening mammography in one year. BI-RADS Category 1: Negative Reviewed, dictated and finalized at location A. CHOPPER
== END ==
PROVIDERS: PCP Internal Medicine; Visit Provider Internal Medicine
DX: Z12.31 Encounter for screening mammogram for malignant neoplasm of breast (principal); Z78.0 Asymptomatic menopausal state; M85.852 Other specified disorders of bone density and structure, left thigh
CPT/HCPCS: 77063; 77067; 77080

== ENCOUNTER 2021-06-12 10:58 | Outpatient (CLI) | payer MEDICARE, SELFPAY | END 2021-06-12 10:59 | disposition home or self-care (01) | LOC: ANHAUDIO 11:00 | PROVIDERS: PCP Internal Medicine; Visit Provider Internal Medicine | DX: H91.90 Unspecified hearing loss, unspecified ear (principal) | CPT/HCPCS: 99199 ==

== ENCOUNTER 2021-06-21 09:39 | Emergency (ER) | payer MEDICARE, SELFPAY ==
--- NOTE | ~2021-06-21 | CT_ITS ---
EXAMINATION: CT brain wo con DATE: 06/21/2021 09:45 INDICATION: Fall with head injury presenting with head pain and hematoma. TECHNIQUE: Computed tomography (CT) of the head was performed without intravenous contrast. Sagittal and coronal reconstructions were performed. The mA was adjusted according to patient size. Iterative reconstruction technique was employed. The dose-length product was 605.33 mGy-cm. COMPARISON: head CT dated 08/18/2019 FINDINGS: Large right frontal scalp hematoma. No fracture. Small subarachnoid hematoma along a midline gyrus of the anterior right frontal lobe. No acute infarction or abnormal extra axial fluid collection. Small old left cerebellar infarct. There is mild scattered white matter hypoattenuation consistent with ch ronic small vessel ischemic disease. Ventricles are normal and symmetric. Again seen is an approxima tely 9 x 11 mm endometrial mass with peripheral small focus of calcification located at the lateral m argin of the anterior horn of the left lateral ventricle. Changes of bilateral intraocular lens repla cement. The orbits, paranasal sinuses and mastoid air cells are normal. IMPRESSION: 1. Small right frontal subarachnoid hematoma. Dr. Soares discussed these findings with Dr. Escudero at 10:09 AM. 2. Right frontal scalp hematoma without underlying fracture. Chronic small old left cerebellar infarc t. 3. No significant change in a 9 x 11 mm ependymal mass in the left lateral ventricle which could repr esent either oliveira matter heterotopia or neoplasm such as or subependymoma. Reviewed, dictated and finalized at location A. OSAL MANAGER WRITER IMPRESSION: 1. Small right frontal subarachnoid hematoma. Dr. Soares discussed these find ings with Dr. Escudero at 10:09 AM. 2. Right frontal scalp hematoma without underlying fracture. Chronic small old left cerebellar infarct. 3. No significant change in a 9 x 11 mm ependymal mass in the left lateral vent ricle which could represent either oliveira matter heterotopia or neoplasm such as or subependymoma.
--- NOTE | ~2021-06-21 | CT_ITS ---
EXAMINATION: CT cervical spine wo con DATE: 06/21/2021 09:45 INDICATION: Neck pain TECHNIQUE: Computed tomography (CT) of the cervical spine was performed without intravenous contrast. The dose-length product (DLP) was 269.95 mGy-cm. Automated exposure control and iterative reconstruc tion technique were employed. COMPARISON: None FINDINGS: There are 2 mm of retrolisthesis of C3 on C4. Bone alignment is otherwise normal. There is no fracture. There is moderate loss of intervertebral disc space height at C3-4. The odontoid is inta ct. There is moderate uncovertebral joint osteoarthritis at C3-4. Multilevel facet osteoarthritis is noted. IMPRESSION: 1. No acute osseous abnormality. Reviewed, dictated and finalized at location A. H UP PERSON
[2021-06-21 09:49] VITALS: BP 207/77; PULSE 60; RESP 14; TEMP 36.5; O2SAT 98
[2021-06-21] MEDS: ONDANSETRON INJ 4 MG/2 ML VIAL IV PUSH (09:57)
--- NOTE | 2021-06-21 10:00 | ED.HEATRA ---
HPI - Head Injury General Chief complaint: Head Injury Stated complaint: FALL, HEMATOMA Time Seen by Provider: 06/21/21 09:40 Source: patient History of Present Illness HPI Narrative: Patient brought in for a ground-level fall. Patient does not member the exact details of the event was there. Patient appeared to be getting up to answer her phone but her legs caught and then fell down. She was noted to have a large hematoma EMS was called the patient was transported to the ER for evaluation. Patient does not remember the event she reports a large headache is now feeling nauseous she denies any changes in vision she denies any focal numbness or weakness. She denies any other focal areas of pain other than her head Related Data Home Medications Medication Instructions Recorded Confirmed Centrum Silver 1 tablet PO DAILY 03/22/19 06/18/21 Repatha Pushtronex 420 mg SUBCUT MONTHLY 03/22/19 06/18/21 calcium carbonate-vitamin D3 1 tablet PO DAILY 03/22/19 06/18/21 [Calcium 600 + D(3)] aspirin [Adult Low Dose Aspirin] 81 mg PO DAILY 08/18/19 06/18/21 isosorbide mononitrate 30 mg PO DAILY 08/18/19 06/18/21 nitroglycerin 0.4 mg PO Q5M PRN MDD 3 tablets 08/18/19 06/18/21 sitagliptin 100 mg tablet 100 mg PO DAILY 05/24/20 06/18/21 Adult Probiotic 1 cap PO DAILY 01/29/21 06/18/21 calcium polycarbophil 625 mg tablet 1,250 mg PO BID 02/01/21 06/18/21 Allergies Allergy/AdvReac Type Severity Reaction Status Date / Time iohexol Allergy Severe Hives/REDFA Verified 06/18/21 10:07 [From CONTRAST - CT, XRAY] CE Penicillins Allergy Severe Hives Verified 06/18/21 10:07 red dye Allergy Severe Rash Verified 06/18/21 10:07 yellow dye Allergy Severe Hallucinati Verified 06/18/21 10:07 ng Iliqdfs-PNH-HrZ Reductase Allergy Intermediate Joint Pain Verified 06/18/21 10:07 Inhibitor [Wefyoxg-Lpa-Cet Reductase Inhibitor] vancomycin Allergy Intermediate CHEST Verified 06/18/21 10:07 PRESSURE, SOB,HEAD PRESSURE adhesive tape Allergy Mild REDNESS Verified 06/18/21 10:07 aspirin Allergy Mild Hives Verified 06/18/21 10:07 latex Allergy Mild Rash Verified 06/18/21 10:07 neomycin Allergy Mild Itching Verified 06/18/21 10:07 penicillin G Allergy Mild RASH Verified 06/18/21 10:07 bacitracin AdvReac Mild Nausea and Verified 06/18/21 10:07 Vomiting polymyxin B AdvReac Mild Nausea and Verified 06/18/21 10:07 Vomiting zolpidem AdvReac Mild Nausea and Verified 06/18/21 10:07 Vomiting Review of Systems Review of Systems: CONSTITUTIONAL: Denies fever, chills, or sweats. EYES: Denies visual changes, redness, or discharge. ENT: Denies rhinorrhea, congestion, sore throat, or otalgia. CARDIOVASCULAR: Denies chest pain, palpitations, or edema. RESPIRATORY: Denies cough or dyspnea. GASTROINTESTINAL: Denies abdominal pain, nausea, vomiting, or diarrhea. GENITOURINARY: Denies dysuria or hematuria. SKIN: Denies rash or itching. MUSCULOSKELETAL: Denies back pain, joint pain, or myalgia. NEUROLOGIC: Denies headache, numbness, dizziness, or weakness. PSYCHIATRIC: Denies anxiety or depression. 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 Differential diagnosis includes oliveira matter heterotopia and neoplasm such as subependymoma. Cervicalgia Chronic sinusitis Cognitive dysfunction Constipation Coronary artery disease : Stent in 2009. : Angioplasty to circumflex in April 2018. : Cardiac catheterization October 12, [address] Acosta showed mild to moderate nonobstructing coronary artery disease with persistent improvement in stenosis previously treated with balloon angioplasty of the circumflex distribu
[2021-06-21] MEDS: SODIUM CHLORIDE 0.9% IV 500 ML 999 ML IV CONT (10:01)
--- NOTE | 2021-06-21 10:01 | ECG_ITS ---
Measurements Intervals [place] Rate: 54 P: 66 [place]: 163 QRS: -4 QRSD: 97 T: 30 QT: 440 QTc: 418 Interpretive Statements SINUS BRADYCARDIA POSSIBLE LEFT ATRIAL ENLARGEMENT INCOMPLETE RIGHT BUNDLE BRANCH BLOCK LOW QRS VOLTAGE IN PRECORDIAL LEADS BASELINE ARTIFACT- I, AVL, V1-V3 BORDERLINE ECG Electronically Signed On 06-21-2021 12:07:53 POSTDOCTORAL SCIENTIST by Danilo Jackson D.O.
[2021-06-21 10:02] VITALS: BP 208/67; PULSE 51; RESP 15
[2021-06-21 10:17] VITALS: BP 211/75; PULSE 56; RESP 17
[2021-06-21 10:30] VITALS: BP 210/80; PULSE 57; RESP 6
[2021-06-21 10:32] LABS: Basophils Absolute Auto 0.1 K/mm3 (0.0-0.1); Basophils Percent Auto 0.7 % (0.2-1.2); Eosinophils Absolute Auto 0.2 K/mm3 (0-0.3); Eosinophils Percent Auto 2.9 % (0-4.4); Hematocrit 43.9 % (37.0-47.0); Hemoglobin 14.5 g/dL (12.0-15.0); Immature Granulocyte Absolute 0.02 K/mm3 (0.00-0.031); Immature Granulocyte Percent A 0.3 % (0-0.5); Lymphocytes Absolute Auto 1.92 K/mm3 (0.9-3.2); Lymphocytes Percent Auto 27.5 % (18.3-44.2); Mean Corpuscular Hemoglobin 29.9 pg (26-34); Mean Corpuscular Volume 90.5 fl (80-100); Mean Platelet Volume 10.2 fl (7.4-10.4); Monocytes Absolute Auto 0.6 K/mm3 (0.1-0.6); Monocytes Percent Auto 8.3 % (2.6-8.5); Neutrophils Absolute Auto 4.2 K/mm3 (1.3-6.7); Neutrophils Percent Auto 60.3 % (45.5-73.1); Platelet Count Result 230 k/mm3 (150-375); Red Blood Count 4.85 M/mm3 (4.2-5.4); Red Cell Distribution Width 13.5 % (11.5-14.5)
[2021-06-21] MEDS: TRANEXAMIC ACID 1,000MG/ISO100 1,000 MG/100 ML BAG 200 MG IVPB (10:33)
[2021-06-21 10:48] LABS: Alanine Aminotransferase 19 U/L (4-35); Albumin Level 4.3 g/dL (3.5-5.1); Alkaline Phosphatase 66 U/L (38-126); Anion Gap 6 mmol/L (8-16); Aspartate Amino Transferase 35 U/L (14-36); Bilirubin,Total 0.6 mg/dL (0.2-1.3); Blood Urea Nitrogen 18 mg/dL (7-17); Calcium 9.1 mg/dL (8.4-10.2); Carbon Dioxide 28 mmol/L (22-30); Chloride 106 mmol/L (98-107); Estimated CRCL calculation 57 ml/min; Estimated Glomerular Filt Rate > 60; Glucose 137 mg/dL (65-110); Potassium 4.1 mmol/L (3.4-5.0); Sodium 140 mmol/L (137-145)
[2021-06-21 10:53] VITALS: BP 208/78; PULSE 59; RESP 14; TEMP 36.6; O2SAT 98
--- NOTE | 2021-06-21 10:56 | PC.NURSE ---
Patient transferred to [facility] via [facility]. patient report given bedside to [facility]. Patient report called to [place].
[2021-06-21 11:01] LABS: INR 1.1; Partial Thromboplastin Time 26.3 SECONDS (22.3-36.8); Prothrombin Time 13.3 Seconds (11.1-14.7)
== END 2021-06-21 10:55 | disposition short-term general hospital (02) ==
LOC: ANHED 10:17
PROVIDERS: Emergency Provider Emergency Medicine; PCP Internal Medicine
DX: S06.6X9A Traumatic subarachnoid hemorrhage with loss of consciousness of unspecified duration, initial encounter (principal); I25.10 Atherosclerotic heart disease of native coronary artery without angina pectoris; I10 Essential (primary) hypertension; E11.9 Type 2 diabetes mellitus without complications; E03.9 Hypothyroidism, unspecified; K58.9 Irritable bowel syndrome, unspecified; G47.33 Obstructive sleep apnea (adult) (pediatric); J32.9 Chronic sinusitis, unspecified; E55.9 Vitamin D deficiency, unspecified; Z86.73 Personal history of transient ischemic attack (TIA), and cerebral infarction without residual deficits; Z95.5 Presence of coronary angioplasty implant and graft; Z79.82 Long term (current) use of aspirin; Z79.02 Long term (current) use of antithrombotics/antiplatelets; Z98.42 Cataract extraction status, left eye; Z98.41 Cataract extraction status, right eye; Z90.5 Acquired absence of kidney; Z79.84 Long term (current) use of oral hypoglycemic drugs; R00.1 Bradycardia, unspecified; R94.31 Abnormal electrocardiogram [ECG] [EKG]; I45.10 Unspecified right bundle-branch block; W01.0XXA Fall on same level from slipping, tripping and stumbling without subsequent striking against object, initial encounter
CPT/HCPCS: 36415; 70450; 72125; 80053; 83735; 85025; 85610; 85730; 93005; 96365; 96375; 99285; J2405; J7040

== ENCOUNTER 2021-08-23 13:30 | Outpatient (CLI) | payer MEDICARE, SELFPAY ==
--- NOTE | ~2021-08-23 | XR_ITS ---
EXAMINATION: XR sinus min 3V DATE: 08/23/2021 14:00 INDICATION: Chronic sinusitis. TECHNIQUE: 5 views of the skull were obtained. COMPARISON: Head CT 06/21/2021 FINDINGS: There is leftward deviation of the nasal septum. The paranasal sinuses are grossly clear. A wire in right side of the head is likely from embolization. IMPRESSION: 1. Leftward deviation of the nasal septum. Reviewed, dictated and finalized at location B.
== END 2021-08-23 13:31 | disposition home or self-care (01) ==
LOC: ANHIMG 13:39
PROVIDERS: PCP Internal Medicine; Visit Provider Internal Medicine
DX: J32.9 Chronic sinusitis, unspecified (principal); J34.2 Deviated nasal septum
CPT/HCPCS: 70220

== ENCOUNTER 2021-08-29 14:04 | Outpatient (CLI) | payer MEDICARE, SELFPAY ==
[2021-08-29 14:47] LABS: Add Urine Microscopic? YES; Amorphous Sediment Urine Few; Appearance Urine Cloudy (Clear); Bacteria Urine Trace /hpf; Bilirubin Urine Negative (Negative); Blood Urine Negative (Negative); Color Urine Yellow (Yellow); Glucose Urine UA Negative (Negative); Ketones Urine Negative (Negative); Leukocyte Esterase Ur Negative LEU/UL (Negative); Nitrate Urine Negative (Negative); Protein Urine Negative (Negative); Specific Grav Ur 1.015 (1.001-1.035); Squamous Epithelial Cell Urine Rare /hpf (Few); Urobilinogen Urine Negative mg/dL (<2.0); WBC Urine 0-3 /hpf
== END 2021-08-29 14:05 | disposition home or self-care (01) ==
LOC: ANHLAB 14:08
PROVIDERS: PCP Internal Medicine; Visit Provider Internal Medicine
DX: R30.0 Dysuria (principal)
CPT/HCPCS: 81001; 87086

== ENCOUNTER 2021-09-05 08:06 | Outpatient (CLI) | payer MEDICARE, SELFPAY ==
--- NOTE | ~2021-09-05 | CT_ITS ---
EXAMINATION: CT abdomen pelvis wo/w con DATE: 09/05/2021 09:01 INDICATION: Hematuria, unspecified TECHNIQUE: Computed tomography (CT) of the abdomen and pelvis was performed without intravenous contr ast. CT of the abdomen and pelvis was then performed with a total of 130 mL Omnipaque 350 intravenous contrast using a double-bolus technique for simultaneous opacification of the renal parenchyma and r enal collecting system. The dose-length product (DLP) was 735.61 mGy-cm. Automated exposure control a nd iterative reconstruction technique were employed. COMPARISON: 01/09/2021 FINDINGS: Minimal dependent atelectasis is present in the lung bases. The heart size is normal. The l iver, spleen, pancreas, gallbladder, and adrenal glands are normal. There are changes of left nephrec luis daniel. There is a 9 mm cyst of the right mid kidney. No suspicious renal or urothelial lesion is ident ified. No pathologically enlarged abdominal or pelvic lymph nodes are identified. There is no free in traperitoneal gas or evidence of bowel obstruction. The appendix is normal. Colonic diverticulosis is present without evidence of diverticulitis. There are multiple pelvic phleboliths. There is moderate lumbar spondylosis. IMPRESSION: 1. No CT correlate for the patient's symptoms. Changes of left nephrectomy. Reviewed, dictated and finalized at location B.
[2021-09-05 08:41] LABS: Estimated Glomerular Filt Rate > 60
== END 2021-09-05 08:07 | disposition home or self-care (01) ==
PROVIDERS: PCP Internal Medicine; Visit Provider Internal Medicine
DX: R31.9 Hematuria, unspecified (principal)
CPT/HCPCS: 74178; Q9967

== ENCOUNTER 2021-09-13 12:17 | Outpatient (CLI) | payer MEDICARE, SELFPAY ==
[2021-09-13 12:44] LABS: Appearance Urine Clear (Clear); Bilirubin Urine Negative (Negative); Blood Urine Negative (Negative); Color Urine Yellow (Yellow); Glucose Urine UA Negative (Negative); Ketones Urine Negative (Negative); Leukocyte Esterase Ur Negative LEU/UL (Negative); Nitrate Urine Negative (Negative); Protein Urine Negative (Negative); Urobilinogen Urine 0.2 mg/dL (<2.0); pH Urine 5.5 (5.0-9.0)
[2021-09-13 12:44] LABS: Anion Gap 8 mmol/L (8-16); Blood Urea Nitrogen 19 mg/dL (7-17); Calcium 9.2 mg/dL (8.4-10.2); Carbon Dioxide 29 mmol/L (22-30); Chloride 101 mmol/L (98-107); Cholesterol 162 mg/dL (0-200); Estimated Glomerular Filt Rate > 60; Glucose 126 mg/dL (65-110); HDL Direct 69 mg/dL; Potassium 4.2 mmol/L (3.4-5.0); Sodium 138 mmol/L (137-145); Triglycerides 161 mg/dL (<150)
[2021-09-13 12:46] LABS: Add Urine Microscopic? NO
[2021-09-13 12:55] LABS: LDL Cholesterol Direct 59 mg/dL
== END 2021-09-13 12:18 | disposition home or self-care (01) ==
PROVIDERS: PCP Internal Medicine; Visit Provider Internal Medicine
DX: E78.2 Mixed hyperlipidemia (principal); E11.9 Type 2 diabetes mellitus without complications; I10 Essential (primary) hypertension; Z79.899 Other long term (current) drug therapy
CPT/HCPCS: 36415; 80048; 80061; 81003; 83036

== ENCOUNTER 2021-11-09 18:54 | Emergency (ER) | payer MEDICARE, SELFPAY ==
[2021-11-09] VITALS (36 sets, daily range): BP systolic 91–133; BP diastolic 31–94; PULSE 47–62; RESP 11–25; TEMP 36.1; O2SAT 18–100
--- NOTE | ~2021-11-09 | CT_ITS ---
EXAMINATION: CT brain wo con DATE: 11/09/2021 19:42 INDICATION: Headache. Left arm numbness. History of subdural hemorrhage. TECHNIQUE: Computed tomography (CT) of the head was performed without intravenous contrast. The dose- length product was 605.33 mGy-cm. Automated exposure control and iterative reconstruction technique w ere employed. COMPARISON: Comparison to multiple prior studies sequentially, with oldest reviewed study dated 06/2021. FINDINGS: Decreased size of complex right frontal-parietal subdural fluid collection. There are 2 bur r holes. Maximum transverse dimension is 13 mm compared with 17 mm on prior examination. There is dana roximately 3 mm midline shift to the left. 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 No acute intracra nial hemorrhage or infarction. Paranasal sinuses and mastoids are pneumatized. IMPRESSION: 1. Decreased size of complex extra-axial right subdural fluid collection, likely subacute/chronic hem orrhage. Decreased midline shift to the left measuring 3 mm. Reviewed, dictated and finalized at location A. IMPRESSION: 1. Decreased size of complex extra-axial right subdural fluid collection, likel y subacute/chronic hemorrhage. Decreased midline shift to the left measuring 3 mm.
--- NOTE | 2021-11-09 19:05 | ED.GENADULT ---
HPI - General Adult General Chief complaint: Unspecified <Rose Bertrand MD - Last Filed: 11/09/21 21:50> Stated complaint: left arm numbness <Rose Bertrand MD - Last Filed: 11/09/21 21:50> Time Seen by Provider: 11/09/21 19:04 <Rose Bertrand MD - Last Filed: 11/09/21 21:50> Source: patient and family <Rose Bertrand MD - Last Filed: 11/09/21 21:50> Limitations: no limitations <Rose Bertrand MD - Last Filed: 11/09/21 21:50> History of Present Illness HPI narrative: 76 years old white female brought to the emergency room from home by her complaining of not feeling well, feeling something wrong with her, numbness and subjective weakness left upper extremity. History of brain surgery secondary to right subdural hematoma on October 26, then went to [facility], got discharged 2 days ago, was feeling great yesterday, this morning work-up with the above symptoms. The is telling me that patient looks like nobody home. Patient tells me that she sometimes have good days and sometimes have bad days since having the fall with subdural hemorrhage June of this year. Patient denies any fever, chills, nausea, vomiting, chest pain, headache, shortness of breath or respiratory symptoms. <Rose Bertrand MD - Last Filed: 11/09/21 21:50> Related Data Home medications: Home Medications Medication Instructions Recorded Confirmed nitroglycerin 0.4 mg PO Q5M PRN Chest Pain 08/18/19 11/09/21 <Rose Bertrand MD - Last Filed: 11/09/21 21:50> Allergies/adverse reactions: Allergies Allergy/AdvReac Type Severity Reaction Status Date / Time iohexol Allergy Severe Hives/REDFA Verified 10/01/21 11:37 [From CONTRAST - CT, XRAY] CE Penicillins Allergy Severe Hives Verified 10/01/21 11:37 red dye Allergy Severe Rash Verified 10/01/21 11:37 yellow dye Allergy Severe Hallucinati Verified 10/01/21 11:37 ng Tsryyvq-ULY-HiB Reductase Allergy Intermediate Joint Pain Verified 10/01/21 11:37 Inhibitor [Aqroqwh-Maf-Yze Reductase Inhibitor] vancomycin Allergy Intermediate CHEST Verified 10/01/21 11:37 PRESSURE, SOB,HEAD PRESSURE adhesive tape Allergy Mild REDNESS Verified 10/01/21 11:37 aspirin Allergy Mild Hives Verified 10/01/21 11:37 latex Allergy Mild Rash Verified 10/01/21 11:37 neomycin Allergy Mild Itching Verified 10/01/21 11:37 penicillin G Allergy Mild RASH Verified 10/01/21 11:37 bacitracin AdvReac Mild Nausea and Verified 10/01/21 11:37 Vomiting polymyxin B AdvReac Mild Nausea and Verified 10/01/21 11:37 Vomiting zolpidem AdvReac Mild Nausea and Verified 10/01/21 11:37 Vomiting <Rose Bertrand MD - Last Filed: 11/09/21 21:50> Review of Systems Review of Systems: All systems reviewed & are unremarkable except as noted in HPI and below <Rose Bertrand MD - Last Filed: 11/09/21 21:50> [facility] Past Medical History Medical History: Medical History ASHD (arteriosclerotic heart disease) BMI 23.0-23.9, adult BMI 24.0-24.9, adult 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 Differential diagnosis includes oliveira matter heterotopia and neoplasm such as subependymoma. Cervicalgia Chronic sinusitis Cognitive dysfunction Constipation Coronary artery disease : Stent in 2009. : Angioplasty to circumflex in April 2018. : Cardiac catheterization October 12, [address] Acosta showed mild to moderate nonobstructing coronary artery disease with persistent improvement in stenosis previously treated with balloon angioplasty of the circumflex distribution in April 2018. Dizziness Dysuria Encounter for Medicare annual wellness exam Encounter for routine adult health examination without abnormal findings Encounter to establish care Fall Follow up Frequent stools Hearing loss History of CVA (cerebrovascular a
--- NOTE | 2021-11-09 19:17 | ECG_ITS ---
Measurements Intervals [place] Rate: 48 P: 60 MO: 172 QRS: 7 QRSD: 82 T: 49 QT: 431 QTc: 387 Interpretive Statements SINUS BRADYCARDIA ABNORMAL ECG Electronically Signed On 11-09-2021 20:38:40 CDT by Danilo Jackson D.O.
[2021-11-09 20:15] LABS: Basophils Absolute Auto 0.1 K/mm3 (0.0-0.1); Basophils Percent Auto 0.5 % (0.2-1.2); Eosinophils Absolute Auto 0.2 K/mm3 (0-0.3); Hematocrit 41.6 % (37.0-47.0); Hemoglobin 13.5 g/dL (12.0-15.0); Immature Granulocyte Absolute 0.04 K/mm3 (0.00-0.031); Immature Granulocyte Percent A 0.4 % (0-0.5); Lymphocytes Absolute Auto 2.34 K/mm3 (0.9-3.2); Lymphocytes Percent Auto 21.8 % (18.3-44.2); Mean Corpuscular HGB Conc 32.5 g/dl (32-36); Mean Corpuscular Hemoglobin 29.7 pg (26-34); Mean Corpuscular Volume 91.6 fl (80-100); Mean Platelet Volume 10.4 fl (7.4-10.4); Monocytes Absolute Auto 0.9 K/mm3 (0.1-0.6); Monocytes Percent Auto 8.7 % (2.6-8.5); Neutrophils Absolute Auto 7.2 K/mm3 (1.3-6.7); Neutrophils Percent Auto 66.6 % (45.5-73.1); Platelet Count Result 298 k/mm3 (150-375); Red Blood Count 4.54 M/mm3 (4.2-5.4); Red Cell Distribution Width 13.2 % (11.5-14.5); White Blood Count 10.8 K/mm3 (4.5-10.0)
[2021-11-09 20:27] LABS: INR 1.1; Partial Thromboplastin Time 24.1 SECONDS (22.3-36.8); Prothrombin Time 13.6 Seconds (11.1-14.7)
[2021-11-09 20:28] LABS: Alanine Aminotransferase 22 U/L (6-35); Albumin Level 4.6 g/dL (3.5-5.1); Alkaline Phosphatase 40 U/L (38-126); Anion Gap 7 mmol/L (8-16); Aspartate Amino Transferase 33 U/L (14-36); Bilirubin,Total 0.4 mg/dL (0.2-1.3); Blood Urea Nitrogen 15 mg/dL (7-17); Calcium 9.4 mg/dL (8.4-10.2); Carbon Dioxide 27 mmol/L (22-30); Chloride 103 mmol/L (98-107); Estimated CRCL calculation 48 ml/min; Estimated Glomerular Filt Rate > 60; Glucose 116 mg/dL (65-110); Potassium 4.5 mmol/L (3.4-5.0); Sodium 137 mmol/L (137-145)
--- NOTE | 2021-11-09 20:53 | PC.NURSE ---
[facility] updated on patients status
[2021-11-09 21:36] LABS: SARS-CoV-2 RNA PCR Negative
[2021-11-09 22:26] LABS: Appearance Urine Clear (Clear); Bilirubin Urine Negative (Negative); Blood Urine Negative (Negative); Color Urine Yellow (Yellow); Glucose Urine UA Negative (Negative); Ketones Urine Trace mg/dL (Negative); Leukocyte Esterase Ur Negative LEU/UL (Negative); Nitrate Urine Negative (Negative); Protein Urine Negative (Negative); Specific Grav Ur 1.025 (1.001-1.035); Urobilinogen Urine 0.2 mg/dL (<2.0); pH Urine 5.5 (5.0-9.0)
[2021-11-09 22:30] LABS: Mucus Urine Rare /lpf; RBC Urine 0-2 /hpf (0-2)
[2021-11-09 22:33] LABS: Add Urine Microscopic? YES
[2021-11-10 01:12] VITALS: BP 110/45; PULSE 59; RESP 16
[2021-11-10 02:02] VITALS: BP 125/53; PULSE 55; RESP 18; O2SAT 97
[2021-11-10 04:02] VITALS: BP 100/82; PULSE 51; RESP 16
[2021-11-10 05:32] VITALS: BP 148/58; PULSE 59; RESP 17; O2SAT 99
[2021-11-10 06:25] VITALS: BP 126/45; PULSE 49; RESP 16; O2SAT 97
--- NOTE | 2021-11-10 06:52 | PC.NURSE ---
EMS arrived to transport pt, bedside report given. Pt alert and upright on stretcher during transport out of ED.
== END 2021-11-10 07:00 | disposition short-term general hospital (02) ==
PROVIDERS: Emergency Provider Emergency Medicine; PCP Internal Medicine
DX: G97.82 Other postprocedural complications and disorders of nervous system (principal); R20.2 Paresthesia of skin; Z20.822 Contact with and (suspected) exposure to COVID-19; I25.10 Atherosclerotic heart disease of native coronary artery without angina pectoris; I10 Essential (primary) hypertension; E03.9 Hypothyroidism, unspecified; K58.9 Irritable bowel syndrome, unspecified; G47.33 Obstructive sleep apnea (adult) (pediatric); J32.9 Chronic sinusitis, unspecified; E11.9 Type 2 diabetes mellitus without complications; E55.9 Vitamin D deficiency, unspecified; Z86.73 Personal history of transient ischemic attack (TIA), and cerebral infarction without residual deficits; Z95.5 Presence of coronary angioplasty implant and graft; Z98.42 Cataract extraction status, left eye; Z98.41 Cataract extraction status, right eye; Z87.442 Personal history of urinary calculi; Z90.5 Acquired absence of kidney; Z77.22 Contact with and (suspected) exposure to environmental tobacco smoke (acute) (chronic); Z79.84 Long term (current) use of oral hypoglycemic drugs; R00.1 Bradycardia, unspecified
CPT/HCPCS: 36415; 70450; 80053; 81001; 85025; 85610; 85730; 93005; 99285; C9803; U0003; U0005

== ENCOUNTER 2022-01-31 17:00 | Emergency (ER) | payer MEDICARE, SELFPAY ==
--- NOTE | ~2022-01-31 | CT_ITS ---
EXAMINATION: CT brain wo con DATE: 01/31/2022 17:44 INDICATION: Head injury. TECHNIQUE: Computed tomography (CT) of the head was performed without intravenous contrast. The mA wa s adjusted according to patient size. Iterative reconstruction technique was employed. The dose-lengt h product was 605.33 mGy-cm. COMPARISON: Head CT 11/09/2021, 09/08/2018, brain MRI 08/19/2019, 09/21/2018 FINDINGS: There is an old infarct in left cerebellum. There is an 11 mm subependymal mass in the left frontal lobe as isodense to oliveira matter with adjacent calcification. There is a right-sided subdural hematoma that is hypodense and isodense to oliveira matter measuring up to 5 mm in thickness. Overlying sahil holes are noted. There is no acute ischemic infarct. There are scattered areas of low attenuatio n in the cerebral white matter, which is within normal limits for the patient's age. The ventricles a re normal in size. There is a frontal scalp hematoma. There are likely changes of ocular lens replace ment surgeries. There is mild mucosal thickening in the paranasal sinuses. There is an embolization w evin in right maxillary artery and middle meningeal artery. The mastoid air cells are normal. IMPRESSION: 1. Chronic right-sided subdural hematoma with maximum thickness of 5 mm, improved from 11/09/2021. 2. Old infarct in left cerebellum. 3. 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 Reviewed, dictated and finalized at location A. IMPRESSION: 1. Chronic right-sided subdural hematoma with maximum thickness of 5 mm, improv ed from 11/09/2021. 2. Old infarct in left cerebellum. 3. 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
--- NOTE | ~2022-01-31 | CT_ITS ---
EXAMINATION: CT facial bones wo con DATE: 01/31/2022 17:45 INDICATION: Forehead injury. TECHNIQUE: Computed tomography (CT) of the facial bones and maxillofacial region was performed withou t intravenous contrast. Automated exposure control and iterative reconstruction technique were employ ed. The dose-length product was 367.92 mGy-cm. COMPARISON: Head CT 11/09/2021 FINDINGS: There is a left frontal scalp hematoma. There is leftward deviation of the nasal septum. No fracture. There is mild mucosal thickening in the paranasal sinuses. There are likely changes of ocu lar lens replacement surgeries. There is an embolization wire in right maxillary artery and middle me ningeal artery. There is severe cervical spondylosis. IMPRESSION: 1. No fracture. Reviewed, dictated and finalized at location A. IMPRESSION: 1. No fracture.
[2022-01-31 17:07] VITALS: BP 146/72; PULSE 53; RESP 12; O2SAT 96
--- NOTE | 2022-01-31 17:26 | ED.HEATRA ---
HPI - Head Injury General Chief complaint: Head Injury Stated complaint: fall Time Seen by Provider: 01/31/22 17:16 History of Present Illness HPI Narrative: Patient is a 76-year-old female with a history of subdural hematoma here for evaluation after a fall with head injury. Patient states that she was bent over in her closet on a small step, when the step fell out from under her, causing her to fall forward and strike her forehead against the ground. She did not lose consciousness. She states she was in her usual state of health prior to the fall. Currently reporting a headache and large hematoma to forehead, but is otherwise asymptomatic. Denies any visual changes, dizziness, nausea, vomiting. is in room and confirms that patient is acting her baseline. Related Data Home Medications Medication Instructions Recorded Confirmed nitroglycerin 0.4 mg PO Q5M PRN Chest Pain 08/18/19 11/29/21 dextrose 15 gram/32 mL oral gel g PO 11/12/21 11/29/21 packet docusate sodium 100 mg capsule 100 mg PO BID PRN 11/12/21 11/29/21 evolocumab 420 mg/3.5 mL mg subcut 11/12/21 11/29/21 subcutaneous wearable injector (Repatha Pushtronex) sennosides 8.6 mg tablet (Senna 8.6 mg PO BID 11/12/21 11/29/21 Lax) Allergies Allergy/AdvReac Type Severity Reaction Status Date / Time iohexol Allergy Severe Hives/REDFA Verified 11/29/21 08:01 [From CONTRAST - CT, XRAY] CE Penicillins Allergy Severe Hives Verified 11/29/21 08:01 red dye Allergy Severe Rash Verified 11/29/21 08:01 yellow dye Allergy Severe Hallucinati Verified 11/29/21 08:01 ng Myejwnh-ZRH-OkS Reductase Allergy Intermediate Joint Pain Verified 11/29/21 08:01 Inhibitor [Cjnhecu-Oyq-Mak Reductase Inhibitor] vancomycin Allergy Intermediate CHEST Verified 11/29/21 08:01 PRESSURE, SOB,HEAD PRESSURE adhesive tape Allergy Mild REDNESS Verified 11/29/21 08:01 aspirin Allergy Mild Hives Verified 11/29/21 08:01 latex Allergy Mild Rash Verified 11/29/21 08:01 neomycin Allergy Mild Itching Verified 11/29/21 08:01 penicillin G Allergy Mild RASH Verified 11/29/21 08:01 bacitracin AdvReac Mild Nausea and Verified 11/29/21 08:01 Vomiting polymyxin B AdvReac Mild Nausea and Verified 11/29/21 08:01 Vomiting zolpidem AdvReac Mild Nausea and Verified 11/29/21 08:01 Vomiting Review of Systems Review of Systems: Gen: Denies fevers or chills Eyes: Denies eye pain or visual change ENT: Denies congestion Respiratory: Denies shortness of breath or cough CV: Denies chest pain or palpitations GI: Denies abdominal pain nausea, emesis or diarrhea denies burning, urgency, frequency or hematuria Musculoskeletal: Denies back pain or muscle pain Neuro: Denies numbness, tingling, weakness or focal weakness Skin: Reports large hematoma Except as documented, all other systems reviewed and negative [facility] Past Medical History Medical History ASHD (arteriosclerotic heart disease) BMI 23.0-23.9, adult BMI 24.0-24.9, adult 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 Differential diagnosis includes oliveira matter heterotopia and neoplasm such as subependymoma. Cervicalgia Chronic sinusitis Cognitive dysfunction Constipation Coronary artery disease : Stent in 2009. : Angioplasty to circumflex in April 2018. : Cardiac catheterization October 12, [address] Acosta showed mild to moderate nonobstructing coronary artery disease with persistent improvement in stenosis previously treated with balloon angioplasty of the circumflex distribution in April 2018. Dizziness Dysuria Encounter for Medicare annual wellness exam Encounter for routine adult health examination without abnormal findings Encounter to establish care Fall Follow up Frequent stools Hearing loss History of CVA (cerebrovascular accident) Hospital
--- NOTE | 2022-01-31 17:39 | PC.NURSE ---
Patient in radiology
[2022-01-31 18:49] VITALS: BP 122/90; PULSE 56; RESP 18; O2SAT 98
== END 2022-01-31 18:51 | disposition home or self-care (01) ==
PROVIDERS: Emergency Provider General Practice; PCP Internal Medicine
DX: S09.90XA Unspecified injury of head, initial encounter (principal); W11.XXXA Fall on and from ladder, initial encounter; I25.10 Atherosclerotic heart disease of native coronary artery without angina pectoris; D49.6 Neoplasm of unspecified behavior of brain; I10 Essential (primary) hypertension; E03.9 Hypothyroidism, unspecified; G47.33 Obstructive sleep apnea (adult) (pediatric); K58.9 Irritable bowel syndrome, unspecified; E11.9 Type 2 diabetes mellitus without complications; E55.9 Vitamin D deficiency, unspecified; Z86.73 Personal history of transient ischemic attack (TIA), and cerebral infarction without residual deficits; Z79.02 Long term (current) use of antithrombotics/antiplatelets; Z79.84 Long term (current) use of oral hypoglycemic drugs
CPT/HCPCS: 70450; 70486; 99284

== ENCOUNTER 2022-02-06 13:57 | Outpatient (CLI) | payer MEDICARE, SELFPAY ==
[2022-02-06 14:55] LABS: Basophils Absolute Auto 0.1 K/mm3 (0.0-0.1); Basophils Percent Auto 0.8 % (0.2-1.2); Eosinophils Absolute Auto 0.2 K/mm3 (0-0.3); Eosinophils Percent Auto 2.7 % (0-4.4); Hematocrit 42.7 % (37.0-47.0); Hemoglobin 13.6 g/dL (12.0-15.0); Immature Granulocyte Absolute 0.02 K/mm3 (0.00-0.031); Immature Granulocyte Percent A 0.3 % (0-0.5); Lymphocytes Percent Auto 33.8 % (18.3-44.2); Mean Corpuscular HGB Conc 31.9 g/dl (32-36); Mean Corpuscular Hemoglobin 29.9 pg (26-34); Mean Corpuscular Volume 93.8 fl (80-100); Mean Platelet Volume 10.1 fl (7.4-10.4); Monocytes Absolute Auto 0.7 K/mm3 (0.1-0.6); Neutrophils Absolute Auto 3.9 K/mm3 (1.3-6.7); Neutrophils Percent Auto 52.4 % (45.5-73.1); Platelet Count Result 271 k/mm3 (150-375); Red Blood Count 4.55 M/mm3 (4.2-5.4); Red Cell Distribution Width 13.2 % (11.5-14.5); White Blood Count 7.4 K/mm3 (4.5-10.0)
[2022-02-06 15:13] LABS: Alanine Aminotransferase 19 U/L (6-35); Albumin Level 4.5 g/dL (3.5-5.1); Alkaline Phosphatase 55 U/L (38-126); Anion Gap 7 mmol/L (8-16); Aspartate Amino Transferase 30 U/L (14-36); Bilirubin,Total 0.4 mg/dL (0.2-1.3); Blood Urea Nitrogen 16 mg/dL (7-17); Calcium 9.1 mg/dL (8.4-10.2); Carbon Dioxide 30 mmol/L (22-30); Chloride 101 mmol/L (98-107); Cholesterol 151 mg/dL (0-200); Estimated Glomerular Filt Rate > 60; Glucose 101 mg/dL (65-110); HDL Direct 54 mg/dL; Potassium 4.1 mmol/L (3.4-5.0); Sodium 138 mmol/L (137-145); Triglycerides 202 mg/dL (<150)
[2022-02-06 15:23] LABS: Hemoglobin A1C 6.3 % (<5.7)
[2022-02-06 15:24] LABS: LDL Cholesterol Direct 65 mg/dL
[2022-02-06 18:07] LABS: Vitamin D 25 Hydroxy 58.9 ng/mL
== END 2022-02-06 13:58 | disposition home or self-care (01) ==
PROVIDERS: PCP Internal Medicine; Visit Provider Internal Medicine
DX: Z13.29 Encounter for screening for other suspected endocrine disorder (principal); Z79.899 Other long term (current) drug therapy; I10 Essential (primary) hypertension; E11.9 Type 2 diabetes mellitus without complications; E55.9 Vitamin D deficiency, unspecified
CPT/HCPCS: 36415; 80053; 80061; 82306; 83036; 84439; 84443; 85025; 92507

== ENCOUNTER 2022-03-14 11:00 | Outpatient (RCR) | payer MEDICARE, SELFPAY ==
--- NOTE | 2022-02-03 16:21 | STOPEVAL1 ---
Assessment and note entered by Eliza Nails, INSURANCE PRODUCER Evaluation Information Assessment Status Evaluation Diagnosis Cognitive impairment Subjective Information Patient reports that she fell in June of 2021 and with subdural hematoma requiring surgery in September and subsequent physical/occupational/speech therapy. She states that she completed her therapies in December of this year. Patient reported that she was diagnosed with Alzheimer's disease last summer, 2020. She just recently fell on January 30 resulting in two black eyes and a mild headache. She reports a history of dizziness and sinus/allergy issues. Reported Pain Level Pain Score 0: Self Report Assessment ST Clinical Summary Patient was seen for a cognitive evaluation to determine functional cognitive skills for independence in communication. She reported onset of Alzheimer's disease with medication in 2020, then fall with head injury, subdural hematoma and subsequent surgery from June through September of 2021 with some inconsistent Speech Therapy. She reports she has been without Speech Therapy since December and that she recently had a fall resulting in two black eyes and a contusion on her forehead. Today she complains of difficulty with recalling new information, shopping lists if she is not looking at the list in writing, remembering how to spell common words, including words like the , and mathematical equations for simple math (checkbook or addition/subtraction in the head such as when checking out of a store). Speech Therapy twice weekly for four weeks is recommended to address instruction for use of memory strategies to facilitate immediate memory for functional items such as shopping lists, errands, appointments, comparison/contrast of items to assist with analyzing word choices, and functional math to assist with such tasks as grocery shopping and determining times. Spelling will be informally addressed. Thank you for this referral. Plan of Care Interventions Treatment for Cognitive F ST Services Indicated Yes Treatment Frequency and 2x weekly/4 weeks. Duration These treatments will address the objective and functional deficits
--- NOTE | 2022-02-27 13:58 | STOPPROGNS ---
Assessment and note entered by Eliza Nails PREPARING BOX TENDER Evaluation Information Assessment Status Progress Assessment ST Clinical Summary PROGRESS NOTE Patient has been seen for an initial Speech Therapy evaluation and six treatment sessions; one session was cancelled due to patient schedule conflict. Therapy has focused on addressing memory /recall and improving short term memory skills, use of memory strategies, logical comparison/ contrast between two items, and functional math skills. Patient has improved in the areas of memory and recall. Today she was presented with four short stories, some sequential, others informative, twice with no discussion in between therapist presentation, and requested to take written notes used to assist with recall immediately following the second presentation and then asked to use the written notes to assist with recall later in the session. Today, her notes were 80% complete in single words and phrases. She recalled the information in the stories with 80% accuracy; if material was not written down, she was unable to recall it. It was noted in story #3 that when therapist repeated, patient began writing down the first pieces of information as if it were still part of the first presentation/paragraph and she was unable to separate the repeated material from the first paragraph (i.e. did not recognize the two repeated steps as the first steps from the paragraph). Additionally, later in the session, she was able to recall 90% of the information from one paragraph but no specific information from paragraph #3, from the steps to the common store products used to complete each step. Of note, patient was given 6 functional math word problems and she set up her own equations and responded to the questions with minimal to no verbal/visual cueing by therapist 83% of the time. She required both verbal and visual cues for 1/6 problems. Therapist had to demonstrate how to read for clues in the problem in order to set up the equation correctly; patient voiced and demonstrated good understanding.
--- NOTE | 2022-02-28 09:23 | PCSTNOTE ---
The patient treatment was not able to be completed on 02/25/22 due to having to take to and from a procedure. Will plan to continue treatment per plan of care.
--- NOTE | 2022-03-14 13:57 | STOPPROG ---
Assessment and note entered by Eliza Nails, CEMENT BLOCK MAKER Evaluation Information Assessment Status Discharge Assessment ST Clinical Summary TREATMENT SESSION AND DISCHARGE SUMMARY This patient has been seen for an initial evaluation of her cognitive skills and then ten treatment sessions focusing on memory and recall. Patient reports history of Alzheimer's disease diagnosed in 2020, and then fall with subdural hematoma and surgery this spring. Right before her initial evaluation, she suffered another fall with diffuse facial bruising but denied any new head injury at that time. Patient attended sessions regularly however on one occasion, she showed up at the right time but on the wrong day, insisting that this therapist had told her I would be off on the scheduled appointment day however that was not the case, she had just convinced herself of this. Otherwise patient was always on time on the right day. Therapy focused on instruction most common memory strategies. After being instructed during the therapy session concerning each strategy and when to use, patient was asked to take the list home and study and attempt to memorize in order to effectively incorporate strategies into her daily living. Instead of doing this, patient stated she leaves the list on the table in a frequented location, reviews it, and states she knows the strategies and is using them. Nonetheless, she has never been able to actually tell me any of the strategies except to write down new information, such as her shopping list. Of concern is that even though she reports she reads written information, she had not gone back to look at her appointment list presented by our clerical workers to remind her of her appointments or she would have seen that she was not scheduled yesterday; today when she arrived, she still was convinced that I had told her to be here yesterday and that I would be gone today. Today the patient was given three word, related word-strings and the following strategies were practiced: repeat new information, repeat it aloud, visual imagery. Initially she consistently only
== END 2022-03-14 15:17 | disposition home or self-care (01) ==
LOC: ANHST 11:00
PROVIDERS: PCP Internal Medicine; Visit Provider Internal Medicine
DX: I69.311 Memory deficit following cerebral infarction (principal)
CPT/HCPCS: 92507; 92523

== ENCOUNTER 2022-04-14 12:30 | Outpatient (CLI) | payer MEDICARE, SELFPAY ==
[2022-04-14 13:53] LABS: Anion Gap 6 mmol/L (8-16); Blood Urea Nitrogen 16 mg/dL (7-17); Calcium 9.1 mg/dL (8.4-10.2); Carbon Dioxide 33 mmol/L (22-30); Chloride 99 mmol/L (98-107); Estimated Glomerular Filt Rate > 60; Glucose 130 mg/dL (65-110); Sodium 138 mmol/L (137-145)
== END 2022-04-14 12:31 | disposition home or self-care (01) ==
PROVIDERS: Anesthesiology; PCP Internal Medicine; Visit Provider Otolaryngology
DX: E11.9 Type 2 diabetes mellitus without complications (principal); Z01.818 Encounter for other preprocedural examination
CPT/HCPCS: 36415; 80048

== ENCOUNTER 2022-04-18 02:05 | Day surgery (SDC) | payer MEDICARE, SELFPAY ==
[2022-04-04 13:03] VITALS: BMI 23.6
--- NOTE | 2022-04-04 13:27 | PC.NURSE ---
PRE-OP INSTRUCTIONS, PLEASE READ CAREFULLY Report to the Outpatient Waiting Room, entrance under the green pavilion located off [facility], at time _0830_ on date _04/18/22_. Planned Procedure Time: _1030_. Time changes happen often and if your time is changed the preop area will call you the afternoon before. - You and your visitor will be asked to self-screen and do not enter if you have any COVID symptoms. - Only one visitor is requested with a max of two and NO children visitors are allowed at this time. - The patient visitor may be requested to leave or wait in car when not with patient due to distancing restrictions. - A mask is optional within the hospital. Patients may have clear liquids (water, carbonated beverages, clear teas, apple juice) until 3 hours prior to surgery (0730 AM) with a maximum of 20 ounces. - No food from midnight until time of surgery Take the following medications with a SIP of water the morning of surgery: _ISOSORBIDE, LEVOTHYROXINE, METOPROLOL, TYLENOL IF NEEDED_ Medications to discontinue __CLOPIDOGREL (PLAVIX) PER DR. BASHIR'S INSTRUCTIONS__ Medications to discontinue per ANESTHESIA - _MULTIVITAMIN 3 DAYS PRIOR TO SURGERY, Date to take last dose 04/14/12_ Please no make-up, nail filipino, hairspray, perfume, deodorant, or body powder the day of surgery. No jewelry (including any body piercings) or valuables the day of surgery, leave them at home. Please take a shower or bath the night before, or the morning of, surgery with an antibacterial soap. Wear comfortable, loose fitting clothing. - Jewelry must be removed prior to entering the operating room. Rings and piercings that are not removed may be cut off. - The hospital will not accept responsibility for valuables. - Please leave all valuables, including medications, at home the day of surgery. If you are going home after surgery, a licensed driver guard must drive you home. - NO public transportation without another adult if you receive anesthesia. - We recommend that an adult stay with you for 24 hours following discharge. - We also recommend that you do not drive, make important decision, drink alcoholic beverages, or take any drugs that were not prescribed by your health care provider for at least 24 hours after your discharge time. Follow any additional instructions given to you from your surgeon. If you or anyone in your household have experienced Covid symptoms in the past week, please notify your surgeon or the nurse liaison at the phone number below for possible testing. Telephone instructions given to _PATIENT_and asked if any additional questions and then verbalized understanding. Patient advised to call surgeon office or pre surgery nurse liaison [phone] if any additional questions.
--- NOTE | 2022-04-17 17:20 | PM.IMHP ---
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 Differential diagnosis includes oliveira matter heterotopia and neoplasm such as subependymoma. Cervicalgia Chronic diarrhea Cognitive dysfunction Constipation Coronary artery disease : Stent in 2009. : Angioplasty to circumflex in April 2018. : Cardiac catheterization October 12, [address] Acosta showed mild to moderate nonobstructing coronary artery disease with persistent improvement in stenosis previously treated with balloon angioplasty of the circumflex distribution in April 2018. 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 On intermediate accountant drug therapy Orthostatic hypotension Post-menopausal Rhinitis Right leg swelling Subarachnoid bleed Subdural hematoma Trapezius muscle spasm Type 2 diabetes mellitus without complication Hemoglobin A1c was 6.9% in April 2019. Vaso vagal episode Vitamin D deficiency Surgical History Surgical History History of bilateral cataract extraction History of carpal tunnel release History of nephrectomy, left In 1984, secondary to nephrolithiasis. History of ovarian cystectomy History of tonsillectomy History of tubal ligation Status post creation of urethral sling by suprapubic approach Family History Family History Mother Family history of diabetes mellitus in first degree relative Family history of coronary artery disease Family history of malignant neoplasm of thyroid Family history of kidney disease Family history of heart disease in male family member before age 55 Other Diabetes mellitus Family history of arthritis Hypertension Social History Social History Social History: Surrogate decision maker: Santy Cedeno, spouse. Code status: Full code. Smoking status: Never smoker Second hand tobacco smoke exposure: No Alcohol intake: never Substance use: never Substance use type: does not use Additional living arrangements comments: Lives with spouse, Santy, in [place]. 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 Spiritual care concerns: No Agree to blood products: Yes Meds Home Medications and Allergies Home Medications Medication Instructions Recorded Confirmed Type nitroglycerin 0.4 mg PO Q5M PRN Chest Pain 08/18/19 04/04/22 History lancing device with lancets kit #1 ea 06/04/21 02/26/22 Rx (Accu-Chek Multiclix Lancet kit) acetaminophen 325 mg tablet (Mapap 975 mg PO Q6H PRN Pain Rated 1-3 11/07/21 04/04/22 Rx (acetaminophen)) #30 tabs calcium carbonate 500 mg calcium 500 mg PO DAILY@0800 #30 tabs 11/07/21 04/04/22 Rx (1,250 mg) tablet (Oyster Shell Calcium 500) calcium polycarbophil 625 mg 625 mg PO QAM #30 tabs 11/07/21 04/04/22 Rx tablet (Fiber (calcium polycarbophil)) isosorbide mononitrate 30 m
[2022-04-18] VITALS (18 sets, daily range): BP systolic 153–184; BP diastolic 63–84; PULSE 48–99; RESP 9–18; TEMP 36.1–36.2; O2SAT 90–100
--- NOTE | 2022-04-18 07:23 | WPDHPUPDATE1 ---
History and Physical Update Update Date/Time: 04/18/22 07:23 History and Physical has been reviewed, including an updated exam of the patient. There are NO changes in the patient's condition. Risks, benefits, and alternatives have been discussed and questions answered. Patient agrees to proceed with procedure. Bilateral anterior ethmoids, maxillary antrostomies, right sphenoid, septum, turbinates
--- NOTE | 2022-04-18 08:47 | WPDANESEPPF ---
Anes - Initial Pre Proc Eval Procedure: Operation Date: 04/18/22 09:30 Proposed Procedures p Endoscopic Septoplasty - Bruce Forde MD s Image Guided Bilateral Anterior Ethmoidectomy, Bilateral Maxillary Antrostomy without Tissue Removal, Bilateral Inferior Turbinectomy With Outfracture, Excision Right Margaret Bullosa, Right Sphenoidotomy without Tissue Removal - Bruce Forde MD Date/Time: 04/18/22 08:47 Surgeon: Bruce Forde MD Pre Op Diagnosis: chronic sinusitis Patient Data Age: 76 Gender: F Height: 1.66 m Weight: 65.45 kg Allergies Allergy/AdvReac Type Severity Reaction Status Date / Time iohexol Allergy Severe Hives/REDFA Verified 04/04/22 12:49 [From CONTRAST - CT, XRAY] CE Penicillins Allergy Severe Hives Verified 04/04/22 12:49 red dye Allergy Severe Rash Verified 04/04/22 12:49 yellow dye Allergy Severe Hallucinati Verified 04/04/22 12:49 ng Hfjxwkj-BYO-ThC Reductase Allergy Intermediate Joint Pain Verified 04/04/22 12:49 Inhibitor [Nnbnhpz-Tpc-Gcr Reductase Inhibitor] vancomycin Allergy Intermediate CHEST Verified 04/04/22 12:49 PRESSURE, SOB,HEAD PRESSURE adhesive tape Allergy Mild REDNESS Verified 04/04/22 12:49 aspirin Allergy Mild Hives Verified 04/04/22 12:49 latex Allergy Mild Rash Verified 04/04/22 12:49 neomycin Allergy Mild Itching Verified 04/04/22 12:49 penicillin G Allergy Mild RASH Verified 04/04/22 12:49 bacitracin AdvReac Mild Nausea and Verified 04/04/22 12:49 Vomiting polymyxin B AdvReac Mild Nausea and Verified 04/04/22 12:49 Vomiting zolpidem AdvReac Mild Nausea and Verified 04/04/22 12:49 Vomiting levofloxacin [From Levaquin] AdvReac Rash Verified 04/04/22 13:06 Home Medications Medication Instructions Recorded Confirmed Type nitroglycerin 0.4 mg PO Q5M PRN Chest Pain 08/18/19 04/04/22 History lancing device with lancets kit #1 ea 06/04/21 02/26/22 Rx (Accu-Chek Multiclix Lancet kit) acetaminophen 325 mg tablet (Mapap 975 mg PO Q6H PRN Pain Rated 1-3 11/07/21 04/04/22 Rx (acetaminophen)) #30 tabs calcium carbonate 500 mg calcium 500 mg PO DAILY@0800 #30 tabs 11/07/21 04/04/22 Rx (1,250 mg) tablet (Oyster Shell Calcium 500) calcium polycarbophil 625 mg 625 mg PO QAM #30 tabs 11/07/21 04/04/22 Rx tablet (Fiber (calcium polycarbophil)) isosorbide mononitrate 30 mg 60 mg PO QAM #30 tabs 11/07/21 04/04/22 Rx tablet,extended release 24 hr losartan 100 mg tablet 100 mg PO DAILY #30 tabs 11/07/21 04/04/22 Rx multivitamin-iron 9 mg-folic acid 1 tablet PO QAM #30 tabs 11/07/21 04/04/22 Rx 400 mcg-calcium and minerals tablet (Thera M Plus (ferrous fumarate)) sitagliptin phosphate 100 mg 100 mg PO QAM #30 tabs 11/07/21 04/04/22 Rx tablet (Januvia) trazodone 50 mg tablet 25 mg PO HS PRN Insomnia #30 tabs 11/07/21 04/04/22 Rx docusate sodium 100 mg capsule 100 mg PO BID PRN Constipation 11/12/21 04/04/22 History evolocumab 420 mg/3.5 mL 420 mg subcut MONTHLY 11/12/21 04/04/22 History subcutaneous wearable injector (Repatha Pushtronex) donepezil 5 mg tablet (Aricept) 5 mg PO HS #30 tabs 11/26/21 04/04/22 Rx clopidogrel 75 mg tablet 75 mg PO DAILY #90 tabs 12/04/21 04/04/22 Rx metoprolol succinate 25 mg See Rx Instructions .Route 01/07/22 04/04/22 Rx tablet,extended release 24 hr .COMPLEX #30 tabs blood sugar diagnostic (Accu-Chek #100 ea 03/21/22 Rx Guide test strips) blood-glucose meter (Accu-Chek #1 ea 03/21/22 Rx Guide Glucose Meter) levothyroxine 88 mcg tablet See Rx Instructions .Route 03/24/22 04/04/22 Rx .COMPLEX #90 tabs lancets #100 ea 12/05/22 Rx Patient hx anesthesia problems: other Family hx anesthesia problems: other Results Review: All pre-operative results and documents have been reviewed as part of the pre-operative evaluation. [facility] Past Medical History Medical History BMI 23.0-23.9, adult B
[2022-04-18] MEDS: LACTATED RINGERS 1,000 ML 30 ML IV CONT ×3 (08:50→15:53)
[2022-04-18] MEDS: ACETAMINOPHEN 500 MG TABLET 1000 MG PO (08:50)
[2022-04-18 08:52] LABS: Glucose Point of Care 126 mg/dl (65-105)
[2022-04-18] MEDS: ceFAZolin 2 GM/D5W 50 ML 2 GM/50 ML BAG IVPB (09:16)
[2022-04-18] MEDS: OXYMETAZOLINE HCL 0.05% NAS 15 ML BTL (*BKC) 1 SPRAY NASAL (10:13)
[2022-04-18] MEDS: MUPIROCIN 2% OINT 22 GM TUBE 1 APPLIC EACH NARE (10:52)
[2022-04-18 11:36] LABS: Glucose Point of Care 201 mg/dl (65-105)
[2022-04-18] MEDS: fentaNYL CITRATE INJ (*CRX) 100 MCG/2 ML VIAL 25 MCG IV PUSH ×2 (11:47→11:54)
--- NOTE | 2022-04-18 11:48 | P.OP_ITS ---
Procedure Note - Detailed Date of Procedure 04/18/22 Pre-op Diagnosis chronic sinusitisWill deviation nasal obstruction nasal congestion jack bullosa right-sided Post-op Diagnosis Same Procedure Performed image guided bilateral endoscopic maxillary antrostomies anterior ethmoidectomies right-sided sphenoidotomy right-sided middle turbinectomy with resection of jack septoplasty turbinate reduction with outfracture Surgeon Bruce Forde MD Anesthesia General Indications see above Findings severely deviated septum little if any perforation. Turbinate hypertrophy well reduced disease polypoid tissue all the operated sinuses purulence and severe edema in the jack leading to resection of the middle turbinate. As well as a partial posterior ethmoidectomy Description of Procedure patient identified consent verified. Patient brought operating room. Time-out performed. General anesthesia induced endotracheal tube secured. Patient prepped draped position image guidance initiated 2nd time-out performed. Afrin- soaked pledgets placed allowed to sit for 5 then. Total 10 cc placed bilateral nasal septum inferior turbinates. Inferior turbinates reduced submucosal plane with turbinate blade on microdebrider then outfractured. [place] incision made left-sided nasal septum flap elevated 7 Indian suction utilized to cross over right nasal septal flap then elevated with 7 Indian suction. Deviated septum with osteotome Chris forceps [place] forceps. Small perforation left side with the huge spur. No perforations on the right side. Maxillary antrostomies performed with double ball tip probe backbiter and image guidance as well as microdebrider. Open well. Anterior ethmoidectomies performed with [place] image guidance and microdebrider. Right middle turbinate had a large jack fi lled with purulence as this was open the turbinate became unstable middle turbinectomy was then performed stump cauterized with Bovie suction electrocautery. Middle turbinectomy was straight through. Sphenoidotomy on the right performed with image guidance the sphenoid punch. Some posterior ethmoid cells were opened on the right side as well no damage to any structures. The posterior aspect of the right-sided nasal lacrimal duct was abutted yet not transected or damaged. Patient tolerated the procedure. No pack placed bilaterally bleeding was minimal about 25 cc. No pack expanded. [place] splints placed bilaterally sutured anteriorly using a 3-0 mattressed suture. Patient tolerated the procedure complications. Care the patient given Anesthesiology I performed all dictated portions of the procedure patient taken to PACU. Estimated Blood Loss -25.0 Drains No Packing Yes (novapak) Pathology None sent Complications No immediate complications Condition Stable Disposition PACU
[2022-04-18] MEDS: ONDANSETRON INJ 4 MG/2 ML VIAL IV PUSH (13:26)
--- NOTE | 2022-04-18 14:01 | SUR.PHASEII ---
PATIENT FAINT IN BATHROOM; THIS RN REMAINED WITH PATIENT. ASSISTED BY 2 STAFF TO TRANSFER TO WHEELCHAIR AND THEN TO RECLINER. COOL COMPRESSES TO NECK AND FACE. C/O'S NAUSEA EVEN AFTER ZOFRAN. SATS 88%-95%; SATS RISE WITH DEEP BREATHS. EATING SNACK NOW.
--- NOTE | 2022-04-18 14:55 | SUR.PHASEII ---
SATS DROP TO 88%-90% WHEN DOZES OFF; OXYGEN 5 LITERS PER FM APPLIED WHILE NAPPING. DR. BASHIR AWARE. PATIENT REFUSED TO USE INCENTIVE SPIROMETER. IS DOING DEEP BREATHS WHEN AWAKE.
[2022-04-18] MEDS: diphenhydrAMINE HCl INJ 50 MG/ML VIAL 6.25 MG IV PUSH (15:45)
--- NOTE | 2022-04-18 16:22 | SUR.PHASEII ---
1545 DR. BASHIR AWARE PATIENT FEELS WEAK, DIZZY. WILL MONITOR ONE MORE HOUR AND RE-EVALUATE TO SEE IF PATIENT CAN GO HOME OR BE ADMITTED. DR. BASHIR AND PATIENT IN AGREEMENT WITH THIS PLAN. PATIENT DOZING OFF AND ON; SATS REMAIN >94% EVEN WHILE ASLEEP.
--- NOTE | 2022-04-18 16:33 | SUR.PHASEII ---
PAIN MED NOT GIVEN RECENTLY D/T PATIENT'S NAUSEA, SLEEPINESS AND DIZZINESS.
--- NOTE | 2022-04-18 17:10 | SUR.PHASEII ---
PATIENT ABLE TO WALK INDEPENDENTLY TO THE BATHROOM AND BACK TO THE ROOM. SHE STATES SHE HAS PRE-EXISTING DIZZINESS THAT HER DOCTOR IS AWARE OF. PATIENT MORE ALERT, COMFORTABLE. PATIENT UNSURE IF SHE HAS NAUSEA. NO DRY HEAVING. PATIENT MUCH MORE TALKATIVE AND CHEERFUL.
== END 2022-04-18 17:26 | disposition home or self-care (01) ==
PROVIDERS: PCP Internal Medicine; Visit Provider Otolaryngology
PROC: (CPT 30520; principal; 2022-04-18 09:30)
PROC: (CPT 31254; 2022-04-18 09:30)
DX: J32.9 Chronic sinusitis, unspecified (principal); J34.2 Deviated nasal septum; J34.89 Other specified disorders of nose and nasal sinuses; J34.3 Hypertrophy of nasal turbinates; R09.81 Nasal congestion; J33.8 Other polyp of sinus; I25.10 Atherosclerotic heart disease of native coronary artery without angina pectoris; E03.9 Hypothyroidism, unspecified; G47.33 Obstructive sleep apnea (adult) (pediatric); K58.9 Irritable bowel syndrome, unspecified; E11.9 Type 2 diabetes mellitus without complications; E55.9 Vitamin D deficiency, unspecified; Z95.5 Presence of coronary angioplasty implant and graft; Z86.73 Personal history of transient ischemic attack (TIA), and cerebral infarction without residual deficits; Z79.84 Long term (current) use of oral hypoglycemic drugs; Z79.02 Long term (current) use of antithrombotics/antiplatelets
CPT/HCPCS: 31254; 31256; 31287; 31240; 30999; 30140; 61782; 82948; A9270; J0690; J1170; J1200; J2250; J2405; J2704; J2710; J3010; J7120

== ENCOUNTER 2022-06-10 13:11 | Outpatient (CLI) | payer MEDICARE, SELFPAY ==
--- NOTE | ~2022-06-10 | XR_ITS ---
EXAMINATION: XR abdomen/kub 1V INDICATION: History of right sided kidney stones and left nephrectomy TECHNIQUE: Supine views of the abdomen were obtained on 2 radiographs. COMPARISON: 05/10/2021 FINDINGS: No urolithiasis is identified. Surgical clips in the left abdomen are consistent with histo ry of left nephrectomy. There are phleboliths of the pelvis. The bowel gas pattern is normal. 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 The visualized lung bases are clear. IMPRESSION: 1. No urolithiasis identified. Reviewed, dictated and finalized at location L. SALES CONSULTANT
== END 2022-06-10 13:12 | disposition home or self-care (01) ==
LOC: ANHIMG 13:15
PROVIDERS: PCP Internal Medicine; Visit Provider Urology
DX: Z87.442 Personal history of urinary calculi (principal)
CPT/HCPCS: 74018

== ENCOUNTER 2022-06-25 16:21 | Outpatient (CLI) | payer MEDICARE, SELFPAY ==
--- NOTE | ~2022-06-25 | XR_ITS ---
Clinical Indication: Cough PA and lateral views of the chest: Comparison: 06/13/2020 Findings: The lungs are clear, without evidence of focal consolidation or pleural effusion. Cardiome diastinal silhouette is within normal limits. Bones and soft tissues are unremarkable. Impression: Normal chest. Reviewed, dictated and finalized at [facility]. MOTIVE ENGINEERING TEACHER Impression: Normal chest.
--- NOTE | ~2022-06-25 | XR_ITS ---
XR sinus min 3V 06/25/2022 17:14 Indication: Nasal congestion Procedure: 5 views of the sinuses Comparison: 08/23/2021 Findings: The paranasal sinuses are pneumatized. Mastoids are pneumatized. No air-fluid levels. No si gnificant abnormality of the orbits. Stable appearance to wire overlying the right face, possibly fro m previous embolization. Impression: 1: No significant abnormality of the sinuses. Reviewed, dictated and finalized at location L. RAFT LOADMASTER SUPERINTENDENT Impression: 1: No significant abnormality of the sinuses.
[2022-06-25 16:52] LABS: Basophils Absolute Auto 0.1 K/mm3 (0.0-0.1); Basophils Percent Auto 0.8 % (0.2-1.2); Eosinophils Absolute Auto 0.2 K/mm3 (0-0.3); Eosinophils Percent Auto 2.4 % (0-4.4); Hemoglobin 15.2 g/dL (12.0-15.0); Immature Granulocyte Absolute 0.01 K/mm3 (0.00-0.031); Immature Granulocyte Percent A 0.1 % (0-0.5); Lymphocytes Absolute Auto 2.53 K/mm3 (0.9-3.2); Lymphocytes Percent Auto 32.3 % (18.3-44.2); Mean Corpuscular HGB Conc 32.3 g/dl (32-36); Mean Corpuscular Hemoglobin 29.7 pg (26-34); Mean Corpuscular Volume 91.8 fl (80-100); Mean Platelet Volume 10.1 fl (7.4-10.4); Monocytes Absolute Auto 0.7 K/mm3 (0.1-0.6); Monocytes Percent Auto 9.1 % (2.6-8.5); Neutrophils Absolute Auto 4.3 K/mm3 (1.3-6.7); Neutrophils Percent Auto 55.3 % (45.5-73.1); Platelet Count Result 259 k/mm3 (150-375); Red Blood Count 5.12 M/mm3 (4.2-5.4); Red Cell Distribution Width 13.4 % (11.5-14.5); White Blood Count 7.8 K/mm3 (4.5-10.0)
[2022-06-25 17:49] LABS: Vitamin D 25 Hydroxy 56.7 ng/mL
[2022-06-25 18:25] LABS: Hemoglobin A1C 6.2 % (<5.7)
[2022-06-25 18:35] LABS: Alanine Aminotransferase 20 U/L (6-35); Albumin Level 5.1 g/dL (3.5-5.1); Alkaline Phosphatase 70 U/L (38-126); Anion Gap 9 mmol/L (8-16); Aspartate Amino Transferase 33 U/L (14-36); Bilirubin,Total 0.6 mg/dL (0.2-1.3); Blood Urea Nitrogen 18 mg/dL (7-17); Calcium 9.7 mg/dL (8.4-10.2); Carbon Dioxide 30 mmol/L (22-30); Chloride 102 mmol/L (98-107); Cholesterol 172 mg/dL (0-200); Estimated Glomerular Filt Rate > 60; Glucose 100 mg/dL (65-110); HDL Direct 67 mg/dL; Potassium 4.1 mmol/L (3.4-5.0); Sodium 141 mmol/L (137-145); Triglycerides 203 mg/dL (<150)
[2022-06-25 18:47] LABS: LDL Cholesterol Direct 65 mg/dL
[2022-06-25 19:45] LABS: Folic Acid > 20.0 ng/mL (2.76->20)
== END 2022-06-25 16:22 | disposition home or self-care (01) ==
PROVIDERS: PCP Internal Medicine; Visit Provider Internal Medicine
DX: R05.9 Cough, unspecified (principal); E11.9 Type 2 diabetes mellitus without complications; E03.9 Hypothyroidism, unspecified; E78.2 Mixed hyperlipidemia; I10 Essential (primary) hypertension; E55.9 Vitamin D deficiency, unspecified; E53.8 Deficiency of other specified B group vitamins; J32.9 Chronic sinusitis, unspecified; J34.89 Other specified disorders of nose and nasal sinuses; R09.81 Nasal congestion
CPT/HCPCS: 36415; 70220; 71046; 80053; 80061; 82306; 82607; 82746; 83036; 84439; 84443; 85025

== ENCOUNTER → 2022-10-22 13:19 | Outpatient (CLI) | payer MEDICARE, SELFPAY ==
--- NOTE | ~2022-10-22 | MM_ITS ---
EXAMINATION: MM screening maria l BI w shakir HISTORY: Screening mammogram TECHNIQUE: Craniocaudal and mediolateral oblique 3-D tomosynthesis images were obtained and synthetic 2-D images were generated. CAD analysis was submitted and interpreted. COMPARISON: 05/15/2021, 01/27/2020, 07/14/2018 bilateral screening mammogram examinations BREAST PARENCHYMAL COMPOSITION: There are scattered areas of fibroglandular density. FINDINGS: There is no evidence of suspicious mass, calcification, or architectural distortion to sugg est malignancy in either breast. There has been no suspicious interval change. IMPRESSION: 1. No mammographic evidence of malignancy. 2. Recommend routine screening mammography in one year. BI-RADS Category 1: Negative Reviewed, dictated and finalized at location A.
== END ==
PROVIDERS: PCP Internal Medicine; Visit Provider Internal Medicine
DX: Z12.31 Encounter for screening mammogram for malignant neoplasm of breast (principal)
CPT/HCPCS: 77063; 77067

== ENCOUNTER 2022-10-29 10:47 | Outpatient (CLI) | payer MEDICARE, SELFPAY ==
[2022-10-29 11:32] LABS: Basophils Absolute Auto 0.1 K/mm3 (0.0-0.1); Eosinophils Absolute Auto 0.2 K/mm3 (0-0.3); Eosinophils Percent Auto 3.9 % (0-4.4); Hematocrit 45.1 % (37.0-47.0); Hemoglobin 14.7 g/dL (12.0-15.0); Immature Granulocyte Absolute 0.01 K/mm3 (0.00-0.031); Immature Granulocyte Percent A 0.2 % (0-0.5); Lymphocytes Absolute Auto 2.09 K/mm3 (0.9-3.2); Lymphocytes Percent Auto 35.5 % (18.3-44.2); Mean Corpuscular HGB Conc 32.6 g/dl (32-36); Mean Corpuscular Hemoglobin 29.6 pg (26-34); Mean Corpuscular Volume 90.9 fl (80-100); Mean Platelet Volume 10.2 fl (7.4-10.4); Monocytes Absolute Auto 0.6 K/mm3 (0.1-0.6); Monocytes Percent Auto 9.8 % (2.6-8.5); Neutrophils Absolute Auto 2.9 K/mm3 (1.3-6.7); Neutrophils Percent Auto 49.6 % (45.5-73.1); Platelet Count Result 237 k/mm3 (150-375); Red Blood Count 4.96 M/mm3 (4.2-5.4); Red Cell Distribution Width 13.4 % (11.5-14.5); White Blood Count 5.9 K/mm3 (4.5-10.0)
[2022-10-29 11:43] LABS: Alanine Aminotransferase 22 U/L (6-35); Albumin Level 4.4 g/dL (3.5-5.1); Alkaline Phosphatase 53 U/L (38-126); Anion Gap 0 mmol/L (8-16); Aspartate Amino Transferase 32 U/L (14-36); Bilirubin,Total 0.6 mg/dL (0.2-1.3); Blood Urea Nitrogen 14 mg/dL (7-17); Calcium 9.1 mg/dL (8.4-10.2); Carbon Dioxide 36 mmol/L (22-30); Chloride 103 mmol/L (98-107); Cholesterol 141 mg/dL (0-200); Estimated Glomerular Filt Rate > 60; Glucose 117 mg/dL (65-110); HDL Direct 61 mg/dL; Potassium 4.2 mmol/L (3.4-5.0); Sodium 139 mmol/L (137-145); Triglycerides 135 mg/dL (<150)
[2022-10-29 11:45] LABS: Hemoglobin A1C 6.4 % (<5.7)
[2022-10-29 11:51] LABS: Creatinine Urine 70.6 mg/dL
[2022-10-29 11:54] LABS: LDL Cholesterol Direct 56 mg/dL
[2022-10-29 12:02] LABS: MALB Creatinine Ratio < 8.5 mg/g (0-30); Microalbumin Urine Random < 6.0 mg/L (0-16.7)
== END 2022-10-29 10:48 | disposition home or self-care (01) ==
LOC: ANHLAB 10:50
PROVIDERS: PCP Internal Medicine; Visit Provider Internal Medicine
DX: E11.9 Type 2 diabetes mellitus without complications (principal); E78.2 Mixed hyperlipidemia; I10 Essential (primary) hypertension
CPT/HCPCS: 36415; 80053; 80061; 82043; 83036; 85025